=== PATIENT | female | born 1945 | race Caucasian/White ===

== ENCOUNTER 2017-01-12 11:40 | Day surgery (SDC) | payer MEDICARE ==
--- NOTE | 2017-01-12 08:50 | HP ---
DATE OF SURGERY: 01/12/2017 HISTORY OF PRESENT ILLNESS: The patient is a 71 year-old with no prior colonoscopy. No family history of colon cancer. No pain. No change in bowel movements. No bloody stools. She had just some hemorrhoid issues in the past. She had prolapse in the past. PAST MEDICAL HISTORY: Diabetes, panic disorder, hypertension. PAST SURGICAL HISTORY: Cataract surgery, four coronary heart stents in the past. MEDICATIONS: Tramadol, clonazepam, metoprolol, Breo Ellipta, aspirin, vitamin D3, polyethylene glycol. ALLERGIES: NKDA. FAMILY HISTORY: Diabetes, pancreatic cancer. Negative for colon cancer. SOCIAL HISTORY: One pack per day smoker, denies alcohol abuse. REVIEW OF SYSTEMS: Twelve systems reviewed per admission assessment. No chest pain or palpitations other systems negative or noncontributory as above and per preadmission questionnaire. PHYSICAL EXAMINATION: GENERAL: No acute distress. HEENT: Sclerae nonicteric. NECK: No JVD. CHEST: Equal excursion, nonlabored breathing. CVS: Regular rate and rhythm. ABDOMEN: Soft, nontender. No peritoneal signs. EXTREMITIES: No significant edema. NEURO: Alert, moving extremities symmetrically. No gross motor deficits noted. RECTAL: Deferred timed to endoscopy exam. IMPRESSION: Screening colonoscopy. I feel she is a candidate. Risks and benefits explained in detail but not limited to bleeding or infection, small risk of bowel injury or perforation possibly requiring open procedure, small risk of missed or nondiagnosis or incomplete exam possibly requiring barium enema, other studies or procedures, general risk of anesthesia or sedation, risk of bowel prep, postoperative risk of nausea or cramping but not limited to. With her hemorrhoid issue as well will consider possible hemorrhoid banding pending operative findings. She understands and agrees to the planned procedure and will proceed with colonoscopy with possible hemorrhoid banding as an outpatient under MAC anesthesia.
[~2017-01-12 11:40] MED LIST: ANUSOL-HC 2.5% CREAM 30 GM ONE; Lactated Ringers 1,000 ML IV ONE; Lactated Ringers 1,000 ML IV SCH
[2017-01-12] MEDS ORDERED: Versed 2 MG/2 ML Injection IV ONE (11:41)
[2017-01-12] MEDS ORDERED: DIPRIVAN 200 MG/20 ML IV ONE (11:41)
[2017-01-12] MEDS ORDERED: Lactated Ringers 1,000 ML IV ONE (12:41)
[2017-01-12 15:53] VITALS: O2SAT 16
[2017-01-12 16:00] VITALS: BP 132/90; PULSE 86
--- NOTE | 2017-01-13 09:34 | OP ---
SURGERY DATE/TIME: 01/12/2017 1331 PREOPERATIVE DIAGNOSIS: 1) Need for screening colonoscopy. 2) History of some internal and external hemorrhoid issues. The patient desires consideration of internal hemorrhoid banding. POSTOPERATIVE DIAGNOSES: 1) Grade 2/3 internal and external hemorrhoids. 2) Small raised lesion versus hyperplastic lesion descending and sigmoid colon. 3) Mild diverticulosis. 4) Somewhat poor prep limiting exam. 5) Poor overall sphincter tone. PROCEDURES: 1) Colonoscopy to cecum with hot biopsy removal of small vague raised lesions versus hyperplastic lesions descending colon and sigmoid colon. 2) Internal hemorrhoid banding x2 columns (left lateral and right posterior). SURGEON: MAC. ANESTHESIA: IV sedation IV Demerol and Versed. ESTIMATED BLOOD LOSS: Minimal. INDICATIONS: As noted above. Risks and benefits explained in detail but not limited to and consent obtained. DESCRIPTION OF PROCEDURE AND FINDINGS: The patient is taken to the operating room. MAC anesthesia induced. After official time out and no disagreement with planned procedure, digital rectal exam revealed overall poor sphincter tone. She had some grade 2/3 internal and external hemorrhoids, seemed to have more sphincter tone laxity issue as well. The scope was carefully passed up through the somewhat poorly prepped colon with liquidy semi-solid stool limiting the exam. This was suction irrigated as well as possible but did limit the exam. Slowly and carefully navigated across transverse colon, ascending colon to the right lower quadrant to cecum, appendiceal orifice and valve visualized. Again, prep overall somewhat poor with liquidy semi-solid stools limiting the exam for small lesions. On withdrawal of the scope there were no signs of any large polyps, masses or obstructing lesions. She did have a few diverticula. She did have some very small vague raised lesions versus hyperplastic lesions in the descending and sigmoid colon removed with hot biopsy forceps. Whether this was just hyperplastic mucosa versus early hyperplastic polyps or early true polyps they were removed with hot biopsy forceps. Otherwise she had the internal and external hemorrhoids in the rectum. There were no signs of any large masses or obstructing lesions. Again the prep did limit the exam. The scope was withdrawn at this point. Remained in lateral position. Lubricated hemorrhoid retractor inserted. Again as I mentioned her sphincter tone was lax but she did have some hemorrhoid issues therefore the left lateral using the suction aerospace engineer grasping the top of edge of the hemorrhoid. The suction aerospace engineer is easily applied. A good tuft of tissue noted. This was then again repeated in the right posterior fashion again with the top edge of the hemorrhoid tissue. Suction band was easily applied. The right anterior hemorrhoid complex did not seem to be prominent enough to warrant any banding. The patient tolerated the procedure well. There were no immediate complications. There was no family available to discuss the findings with out in the waiting area. If they return and have questions I could be paged. Otherwise I will see her back in the office next week, continue high fiber diet, Metamucil or FiberCon to titrate soft bulky bowel movements, sitz baths PRN. Again, she has an overall poor sphincter tone so banding to help the hemorrhoids but she could have some fermenting cellars supervisor generalized mucosal prolapse.
== END 2017-01-12 18:07 | disposition home or self-care (01) ==
LOC: SDC 11:40
PROVIDERS: ATTEND Surgery
PROC: 0DBM8ZX Excision of Descending Colon, Via Natural or Artificial Opening Endoscopic, Diagnostic (ICD-10-PCS; principal; 2017-01-12)
PROC: 0DBN8ZX Excision of Sigmoid Colon, Via Natural or Artificial Opening Endoscopic, Diagnostic (ICD-10-PCS; 2017-01-12)
PROC: 06LY4CC Occlusion of Hemorrhoidal Plexus with Extraluminal Device, Percutaneous Endoscopic Approach (ICD-10-PCS; 2017-01-12)
DX: Z12.11 Encounter for screening for malignant neoplasm of colon (principal); K64.4 Residual hemorrhoidal skin tags; K64.8 Other hemorrhoids; K63.9 Disease of intestine, unspecified; K57.90 Diverticulosis of intestine, part unspecified, without perforation or abscess without bleeding; E11.9 Type 2 diabetes mellitus without complications; I10 Essential (primary) hypertension; Z79.899 Other long term (current) drug therapy; Z72.0 Tobacco use
CPT/HCPCS: 00810; 99100; J2250; J2704; A9270-GY

== ENCOUNTER 2019-11-07 10:35 | Day surgery (SDC) | payer MEDICARE ==
--- NOTE | 2019-11-07 09:47 | HP ---
DATE OF SURGERY: 11/07/2019 HISTORY OF PRESENT ILLNESS: The patient is a 74 year old generalized myelodysplastic syndrome in need Port-A-Cath for prison IV treatments per Dr. Monique. I feel she is a candidate. PAST MEDICAL HISTORY: Heart disease. Diabetes. Arthritis. Myelodysplastic syndrome. Panic disorder. Hypertension. PAST SURGICAL HISTORY: Cataract surgery. Heart stents in the past. MEDICATIONS: Metoprolol, Lisinopril, pioglitazone, Colace, aspirin, multivitamin, Aleve. ALLERGIES: TAPE. FAMILY HISTORY: Cancer, diabetes, heart disease. Bipolar. SOCIAL HISTORY: Pack a day smoker, denies alcohol abuse. REVIEW OF SYSTEMS: Fourteen systems reviewed. Negative or noncontributory as above and per preadmission questionnaire. PHYSICAL EXAMINATION: GENERAL: No acute distress. HEENT: Sclerae nonicteric. NECK: No JVD. CHEST: Equal excursion, nonlabored breathing. CVS: Regular rate and rhythm. ABDOMEN: Soft. EXTREMITIES: No significant edema. NEURO: Alert, oriented, moving extremities symmetrically. No gross motor deficits noted. PSYCH: Appropriate mood and affect. IMPRESSION: Myelodysplastic syndrome in need of prison IV access for IV treatments. Risks and benefits explained in detail including but not limited to bleeding or infection, risk of thrombosis or pneumothorax, risk of arterial injury, remote risk of major venous tear, risk of port or catheter fracture or failure possible require removal and replacement, risk of port infection, possible risk of hematoma or seroma formation, risk of aches and pains, burning or numbness but not limited to, risk of anesthesia, deep venous thrombosis, pulmonary embolism, pneumonia but not limited to, will proceed with outpatient Port-A-Cath placement.
[~2019-11-07 10:35] MED LIST changes: -ANUSOL-HC 2.5% CREAM 30 GM ONE; +Ketamine HCl 50 MG/ML ONE; -Lactated Ringers 1,000 ML IV SCH; +Sensorcaine 0.25% 10 ML ONE; +XYLOCAINE 1% HCL 20 ML MDV ONE
[2019-11-07] MEDS ORDERED: CEFAZOLIN 2 GM-D5W BAG** 2 GM/50 ML ML IV ONE (10:48)
[2019-11-07] MEDS ORDERED: Lactated Ringers 1,000 ML IV ONE (10:48)
[2019-11-07] MEDS ORDERED: CEFAZOLIN 2 GM-D5W BAG** 2 GM/50 ML ML IV SCH (11:00)
[2019-11-07] MEDS ORDERED: Lactated Ringers 1,000 ML IV SCH (11:00)
[2019-11-07] MEDS ORDERED: DIPRIVAN 200 MG/20 ML IV ONE (12:40)
[2019-11-07] MEDS ORDERED: SUBLIMAZE 100 MCG/2 ML ONE (12:42)
[2019-11-07] MEDS ORDERED: Versed 2 MG/2 ML Injection ONE (12:42)
--- NOTE | 2019-11-07 13:51 | XRAY ---
Indication: Port placement. Intraoperative fluoroscopy was provided for 2 seconds. Single digital spot image submitted for interpretation demonstrates left Port-A-Cath with tip projecting over the SVC. Correlate with intraoperative findings/report.
[2019-11-07] MEDS ORDERED: Thrombin-JMI 5000 UNITS TP ONE (14:07)
[2019-11-07 15:08] VITALS: BP 134/55; PULSE 76; O2SAT 96
--- NOTE | 2019-11-08 08:49 | OP ---
SURGERY DATE/TIME: 11/07/2019 1258 PREOPERATIVE DIAGNOSIS: Orthostatic syndrome, need for long-term IV access for IV treatments. POSTOPERATIVE DIAGNOSIS: Orthostatic syndrome, need for long-term IV access for IV treatments. PROCEDURE: Tunnel Port-A-Cath placement with C-arm fluoroscopy of left subclavian vein. SURGEON: Dr. Dustin Wilder. SORTING GRAPPLE OPERATOR: Gloria Jauregui, Medical Student III. ANESTHESIA: MAC. ESTIMATED BLOOD LOSS: Minimal. INDICATIONS: As noted above. Risks and benefits explained in detail and not limited to and consent obtained. DESCRIPTION OF PROCEDURE AND FINDINGS: The patient is taken to the operating room. MAC anesthesia introduced. In Trendelenburg position, neck and chest prepped and draped in usual sterile fashion. After official time out and no disagreement with planned procedure, 1% Lidocaine local was infiltrated. 18 gauge cannulation needle inserted on first pass. Good dark nonpulsatile venous return. Guide wire passed without difficulty. Anesthetized tunnel track and port pocket. Inferior subcu port pocket created with aid of cautery. It should be noted she had quite the arterial pumper in the port pocket. Given her myelodysplastic syndrome, it was felt she may have some thyroid dysfunction. Slowly and carefully this was able to be controlled with some 3-0 Vicryl suture ligature on either end. She had a little bit of raw ooze. A small amount of Thrombin had been left in position. Appeared to have good hemostasis at this point. Copious amount of irrigation irrigating clear. Did not appear to have any active bleeding at this point. Again, the pulsatile vessel was then ligated with 3-0 Vicryl suture ligature. Port secured to the chest wall with Prolene suture x2. Catheter tunneled down from cannulation stab wound down port pocket area. The dilator and break away sheath easily placed over the guide wire. Catheter fed down the break away sheath. The tip was in the distal superior vena cava on C-arm fluoroscopy at the top of the right atrial area. Catheter is cut to appropriate length snapped on the port with the hub. The port aspirated dark, nonpulsatile venous return with ease and flushed with injectable heparinized saline provided by the staff without difficulty. Tip was in good location distal superior vena cava. Lung hernández noted to be up bilaterally. It was felt that no further x-rays were necessary at this point. Good hemostasis is noted. Again, a small amount of Thrombin had been left. Appeared to have good hemostasis. Subcu closed with 3-0 Vicryl. Skin closed with 4-0 Vicryl. Cannulation stab wound closed with 4-0 Vicryl. Steri-Strips and sterile dressing applied. The patient tolerated the procedure well. There were no immediate complications. Findings discussed with the family over the phone.
== END 2019-11-07 14:55 | disposition home or self-care (01) ==
LOC: SDC 10:35
PROVIDERS: ATTEND Surgery
DX: Z45.2 Encounter for adjustment and management of vascular access device (principal); I49.8 Other specified cardiac arrhythmias; E11.9 Type 2 diabetes mellitus without complications; D46.9 Myelodysplastic syndrome, unspecified; I10 Essential (primary) hypertension; Z86.79 Personal history of other diseases of the circulatory system
CPT/HCPCS: 36571; 77001; 82962; C1788; 99100; J0690; J1642; J2250; J2704; J3010

== ENCOUNTER 2025-02-01 12:48 | Observation (INO) | payer MEDICARE ==
--- NOTE | 2025-02-01 13:11 | ERPHSYRPT ---
- History of Present Illness Time Seen by Provider: 02/01/25 13:11 Source: patient Exam Limitations: no limitations Physician History: The patient presents complaining of weakness, which resulted in two falls last week. The patient states their legs "went out," causing one fall backward and one forward. The falls resulted in right knee pain, which is tender to palpation, and lumbar back pain. The patient denies hitting their head and denies any associated numbness or tingling in the lower extremities. The patient believes the weakness is from dehydration due to poor oral intake. Allergies/Adverse Reactions: adhesive Allergy (Verified 02/01/25 12:49) Home Medications: Metoprolol Tartrate 25 mg PO BID 01/12/17 [History] Aspirin 81 mg PO DAILY 11/02/19 [History] Naproxen Sodium 220 mg [Aleve 220 MG] 220 mg PO DAILY PRN PRN 11/02/19 [History] Pioglitazone 30 mg [Actos 30 MG] 30 mg PO DAILY 11/02/19 [History] clonazePAM [Klonopin] 1 mg PO BID 11/02/19 [History] Atorvastatin Calcium [Lipitor] 10 mg PO HS 11/07/19 [History] Hx Tetanus, Diphtheria Vaccination/Date Given: (na) Hx Influenza Vaccination/Date Given: No Hx Pneumococcal Vaccination/Date Given: No - Review of Systems All Other Systems: Reviewed and Negative - Past Medical History Pertinent Past Medical History: Yes Neurological History: No Pertinent History ENT History: Cataracts Cardiac History: Coronary Artery Disease, High Cholesterol, Hypertension Respiratory History: No Pertinent History Endocrine Medical History: Diabetes Type II Musculoskeletal History: Arthritis, Osteoarthritis GI Medical History: No Pertinent History History: No Pertinent History Psycho-Social History: Anxiety, Panic Disorder, Other Female Reproductive Disorders: No Pertinent History Other Medical History: panic disorder,agoraphobia, neuropathy,MDS, post retinal membrane L eye - Past Surgical History Past Surgical History: Yes Neuro Surgical History: Neurological Surgery Cardiac: Cardiac Stent Respiratory: No Pertinent History Gastrointestinal: No Pertinent History Genitourinary: No Pertinent History Musculoskeletal: No Pertinent History Female Surgical History: No Pertinent History Other Surgical History: cataract WILLY, back surgeryX3 - Social History Drug Use: none - Nursing Vital Signs Nursing Vital Signs: Initial Vital Signs Temperature 97.1 F 02/01/25 12:49 Pulse Rate 68 02/01/25 12:49 Respiratory Rate 12 02/01/25 12:49 Blood Pressure 147/60 02/01/25 12:49 O2 Sat by Pulse Oximetry 97 02/01/25 12:49 Pain Scale Pain Intensity 3 - [place] Coma Score Best Eye Response ([place]): (4) open spontaneously Best Verbal Response ([place]): (5) oriented Best Motor Response ([place]): (6) obeys commands [place] Total: 15 - Physical Exam General Appearance: no apparent distress Head Injury: no evidence of injury Respiratory/Chest Exam: normal breath sounds, No respiratory distress Cardiovascular Exam: normal heart sounds, regular rate/rhythm Gastrointestinal Exam: soft, No tenderness Back Exam: vertebral tenderness, muscle spasm Extremity Exam: limited range of motion (r knee), pain with movement (r knee), tenderness (r knee), other (unable to WB) Neurologic Exam: alert, oriented x 3, cooperative SpO2 Interpretation: normal SpO2: 97 O2 Delivery: Room Air - Course Nursing assessment & vital signs reviewed: Yes Ordered Tests: Active Orders 24 hr Category Date Time Status Call Admit Doctor for Orders ON ADMISSION Care 02/01/25 16:06 Active Code Status Order ROUTINE Care 02/01/25 16:06 Active Fall Protocol Q1H Care 02/01/25 16:06 Active IV Insertion STAT Care 02/01/25 13:[address] in Observation ROUTINE Care 02/01/25 16:06 Active House Regular Diet Diet 02/01/25 Dinner Active KNEE (3 VIEWS) Stat Exams 02/01/25 13:23 Completed LUMBAR LIMITED (2 OR 3 VIEWS) Stat Exams 02/01/25 13:23 Completed CBC Stat Lab 02/01/25 13:30 Completed CMP Stat Lab 02/01/25 13:24 Completed CULTURE,URINE Stat Lab 02/01/25 13:53 Received UA W/RFX UR CULTURE Stat Lab 02/01/25 13:53 Completed Transfer Order Routine Transfer 02/01/25 Completed Medication Summary Generic Name Dose Route Start Last Admin Trade Name Freq PRN Reason Stop Dose Admin Acetaminophen 500 mg 02/01/25 18:17 02/01/25 18:29 Acetaminophen 500 Mg Tablet PO 02/01/25 18:18 500 mg STAT STA Administration Aspirin 81 mg 02/02/25 10:00 Aspirin 81 Mg Tab.Chew PO 01/24/26 09:59 DAILY OSITO Clonazepam 1 mg 02/01/25 22:00 02/01/25 22:47 Clonazepam 2 Mg Tablet PO 03/03/25 21:59 1 mg BID OSITO Administration Metoprolol Tartrate 25 mg 02/01/25 22:00 02/01/25 22:47 Metoprolol Tartrate 25 Mg Tab PO 03/03/25 21:59 25 mg BID OSITO Administration Nitrofurantoin Macrocrystals 100 mg 02/02/25 08:00 Nitrofurantoin Macro 100 Mg Capsule PO 03/04/25 07:59 BIDWM OSITO Non-Formulary Medication 30 mg 02/02/25 10:00 Pioglitazone 30 Mg [Actos 30 Mg] PO 03/04/25 09:59 DAILY OSITO Non-Formulary Medication 220 mg 02/01/25 21:04 Naproxen Sodium 220 Mg [Aleve 220 Mg] PO DAILY PRN PRN PAIN Simvastatin 10 mg 02/01/25 22:00 02/01/25 22:47 Simvastatin 10 Mg Tablet PO 03/03/25 21:59 10 mg HS OSITO Administration Discontinued Medications Generic Name Dose Route Start Last Admin Trade Name Freq PRN Reason Stop Dose Admin Acetaminophen 975 mg 02/01/25 13:22 02/01/25 13:58 Acetaminophen 325 Mg Tablet PO 02/01/25 13:23 975 mg STAT ONE Administration Acetaminophen Confirm 02/01/25 13:57 Acetaminophen 325 Mg Tablet Administered 02/01/25 13:58 Dose 975 mg .ROUTE .STK-MED ONE Sodium Chloride 1,000 mls @ 999 mls/hr 02/01/25 13:22 02/01/25 15:03 Sodium Chloride 0.9% 1000 Ml IV 02/01/25 14:22 Infused .Q1H1M STA Infusion Sodium Chloride Confirm 02/01/25 13:58 Sodium Chloride 0.9% 1000 Ml Administered 02/01/25 13:59 Dose 1,000 mls @ ud .ROUTE .STK-MED ONE Nitrofurantoin Macrocrystals 100 mg 02/01/25 15:04 02/01/25 15:08 Nitrofurantoin Macro 100 Mg Capsule PO 02/01/25 15:05 100 mg STAT ONE Administration Nitrofurantoin Macrocrystals Confirm 02/01/25 15:07 Nitrofurantoin Macro 100 Mg Capsule Administered 02/01/25 15:08 Dose 100 mg .ROUTE .Liquid X ONE Non-Formulary Medication 10 mg 02/01/25 22:00 02/01/25 22:45 Atorvastatin Calcium [Lipitor] PO 03/03/25 21:59 Not Given HS OSITO Simvastatin Confirm 02/01/25 22:41 Simvastatin 10 Mg Tablet Administered 02/01/25 22:42 Dose 10 mg .ROUTE .[employer]-MED ONE Lab/Rad Data: Laboratory Result Diagrams 02/01/25 13:30 02/01/25 13:24 Laboratory Results 02/01/25 02/01/25 02/01/25 Range/Units 13:53 13:30 13:24 WBC 10.6 H (3.98-10.04) x10^3/uL RBC 2.99 L (3.93-5.22) x10^6/uL Hgb 10.1 L (11.2-15.7) g/dL Hct 33.4 L (34.1-44.9) % MCV 111.7 H (79.4-94.8) fL MCH 33.8 H (25.6-32.2) pg MCHC 30.2 L (32.2-35.5) g/dL RDW 15.3 H (11.7-14.4) % Plt Count 331 (182-369) x10^3/uL MPV 10.6 (9.4-12.3) fL Sodium 140 (135-145) mmol/L Potassium 3.7 (3.5-5.1) mmol/L Chloride 108 H (98-107) mmol/L Carbon Dioxide 22 (22-30) mmol/L Anion Gap 12.9 (5-15) MEQ/L BUN 22 H (7-17) mg/dL Creatinine 0.88 (0.52-1.04) mg/dL Estimated GFR 66.4 ML/MIN Glucose 150 H (74-106) mg/dL Calcium 9.2 (8.4-10.2) mg/dL Total Bilirubin 0.50 (0.2-1.3) mg/dL AST 27 (14-36) U/L ALT 11 (0-35) U/L Alkaline Phosphatase 73 (38-126) U/L Serum Total Protein 6.5 (6.3-8.2) g/dL Albumin 3.5 (3.5-5.0) g/dL Urine Color Yellow (Yellow) Urine Appearance Clear (Clear) Urine pH 5.0 (4.6-8.0) Ur Specific [place] 1.025 (1.005-1.030) Urine Protein 30 (Negative) Urine Glucose (UA) Negative (Negative) mg/dL Urine Ketones 15 A (Negative) Urine Blood Trace (Negative) Urine Nitrite Negative (Negative) Urine Bilirubin Negative (Negative) Urine Urobilinogen 0.2 (0.2) mg/dL Ur Leukocyte Esterase Small A (Negative) U Hyaline Cast (Auto) 11-20 (0-2) /LPF Urine Microscopic RBC 11-20 A (0-5) /HPF Urine Microscopic WBC 51-100 A (0-5) /HPF Ur Epithelial Cells Rare (None Seen) /HPF Amorphous Crystals Moderate A (None Seen) /HPF Urine Bacteria Few A (None Seen) /HPF Urine Culture Reflexed YES (NO) - Progress Progress: unchanged Progress Note: Differential Diagnosis: -Anemia (possible due to history of myelodysplastic syndrome and pale appearance) -Dehydration (possible due to patient's report of poor oral intake and associated weakness) -Orthostatic Hypotension (possible due to falls and potential dehydration) -Musculoskeletal Injury (possible due to falls resulting in right knee and lumbar back pain) -Myelodysplastic Syndrome exacerbation (possible due to known history and presenting with weakness) -Electrolyte abnormality (possible due to poor oral intake) Due to the chief complaint, the following diagnoses were also considered but the signs/symptoms, physical exam, and data points are not consistent with any of the following: Acute Coronary Syndrome, Pulmonary Embolism, Stroke, Sepsis, Arrhythmia, Intracranial Hemorrhage, Spinal Cord Compression, Aortic Dissection, GI Bleed, Seizure, Hypoglycemia. Rationale for Diagnosis and Decision Making: The patient, with a known history of anemia and myelodysplastic syndrome, presents with weakness and falls. The primary concerns are worsening anemia or dehydration leading to orthostatic changes. The decision was made to evaluate with laboratory studies to assess hemoglobin and electrolytes, and to obtain radiographs of the knee and lumbar spine to rule out acute fracture from the falls. IV fluids were initiated for presumed dehydration. XR neg for acute injury, UA shows UTI tx with Macrobid. Was attempting to dc patient, but she states she can't stand up and ambulate. Hospitalist accepts at 1547 for admission. Counseled pt/family regarding: lab results, diagnosis, need for follow-up, rad results Medical Desision Making - Discussion of managment Care discussed with:: hospitalist Reviewed:: Test results Agreed on:: Treatment plan Will see patient: in hospital - Diagnostic Testing Diagnostic test were ordered, analyzed, and reviewed by me: Yes Radiological Interpretation: Interpreted by me, Reviewed by me, Teleradiologist Report - Risk of complications The pt has a mod risk of morbidity or mortality based on: Need for prescription drug management The pt has a high risk of morbidity or mortality based on: Decision regarding hospitilization or escalation of hosp level of care - Departure Departure Disposition: Observation Clinical Impression: Fall, Weakness, UTI (urinary tract infection), Right knee pain, Osteoarthritis of right knee, Lumbago, Difficulty in walking, Physical deconditioning Condition: Stable Critical Care Time: No
[2025-02-01 13:49] LABS: Hematocrit 33.4 % (34.1-44.9); Hemoglobin 10.1 g/dL (11.2-15.7); Mean Corpuscular Hemoglobin 33.8 pg (25.6-32.2); Mean Corpuscular Hgb Concent. 30.2 g/dL (32.2-35.5); Platelet Count 331 x10^3/uL (182-369); Red Blood Count 2.99 x10^6/uL (3.93-5.22); White Blood Count 10.6 x10^3/uL (3.98-10.04)
[2025-02-01] MEDS ORDERED: TYLENOL 325 MG ONE (13:57)
[2025-02-01] MEDS: TYLENOL 325 MG PO ONE (13:58)
[2025-02-01 14:03] LABS: Calcium 9.2 mg/dL (8.4-10.2); Carbon Dioxide 22.0 mmol/L (22-30); Creatinine 1 0.88 mg/dL (0.52-1.04); EST GLOMERULAR FILTRATION RATE 66.4 ML/MIN; Glucose 150.0 mg/dL (74-106); Potassium 3.7 mmol/L (3.5-5.1); SGOT/AST 27.0 U/L (14-36); SGPT/ALT 11.0 U/L (0-35); Total Protein 6.5 g/dL (6.3-8.2)
--- NOTE | 2025-02-01 14:44 | XRAY ---
Indication: Pain following fall. Comparison: None 3 view right knee demonstrates osteopenia, mild/moderate tricompartmental degenerative changes greatest patellofemoral compartment with chunky heterotopic ossification, and moderate scattered vascular calcifications. No acute bony, articular, or soft tissue abnormalities.
[2025-02-01 14:45] LABS: Glucose, Urine Negative (Negative); Protein,Urine Dip 30 (Negative)
[2025-02-01 14:46] LABS: WBC 51-100 /HPF (0-5)
--- NOTE | 2025-02-01 14:46 | XRAY ---
Indication: Pain following fall. Comparison: None 3 view lumbar spine demonstrates 5 lumbar segments with osteopenia, mild levoscoliosis centered at L3, mild/moderate multilevel thoracolumbar degenerative spondylosis, bilateral L5 laminectomy, and extensive scattered vascular calcifications. No acute bony, articular, or soft tissue abnormalities.
[2025-02-01 14:47] LABS: Amourphous Crystal Moderate /HPF (None Seen)
[2025-02-01] MEDS ORDERED: Macrobid 100MG Capsule ONE (15:07)
[2025-02-01] MEDS: Macrobid 100MG Capsule PO ONE (15:08)
[2025-02-01] MEDS: TYLENOL EXTRA STRENGTH 500 MG PO STA (18:29)
--- NOTE | 2025-02-01 20:56 | PCM.HP ---
History of Present Illness - Chief Complaint Chief Complaint: UTI History of Present Illness: is a 80 year old female with history of CAD s/p stents, HTN, hyperlipidemia, DM who presented with weakness after a fall. Patient says she was going from the bathroom to her room with a walker when she fell and could not get up. Called her daughter with her cell phone who called EMS and brought her to the hospital. Patient denies loss of consciousness or hitting her head. Says she hit her knees when she fell and her right knee was hurting more than her left knee. She also complained of right groin pain. In the ER her vitals were mostly within normal limits and labs were stable from baseline. UA was suggestive of infection though she reported some hesitancy but no dysuria. Lumbar and right knee x rays did not show any acute fractures. She was unable to ambulate and care for herself and was admitted for weakness after fall and UTI. - Review of Systems Constitutional: Weakness Eyes: No Symptoms Ears, Nose, & Throat: No Symptoms Respiratory: No Cough, No Short Of Breath Cardiac: No Chest Pain, No Edema, No Syncope Abdominal/Gastrointestinal: No Abdominal Pain, No Nausea, No Vomiting, No Diarrhea Genitourinary Symptoms: No Dysuria Musculoskeletal: Fall, Joint Pain (right knee and right groin pain) Skin: No Rash Neurological: No Dizziness, No Focal Weakness, No Sensory Changes Psychological: No Symptoms Endocrine: No Symptoms Hematologic/Lymphatic: No Symptoms Immunological/Allergic: No Symptoms Medications & Allergies Home Medications: Home Medication List Metoprolol Tartrate 25 mg PO BID 01/12/17 [History Confirmed 02/01/25] Aspirin 81 mg PO DAILY 11/02/19 [History Confirmed 02/01/25] Naproxen Sodium 220 mg [Aleve 220 MG] 220 mg PO DAILY PRN PRN 11/02/19 [History Confirmed 02/01/25] Pioglitazone 30 mg [Actos 30 MG] 30 mg PO DAILY 11/02/19 [History Confirmed 02/01/25] clonazePAM [Klonopin] 1 mg PO BID 11/02/19 [History Confirmed 02/01/25] Atorvastatin Calcium [Lipitor] 10 mg PO HS 11/07/19 [History Confirmed 02/01/25] Nitrofurantoin Macro 100 mg [Macrobid 100MG Capsule] 100 mg PO BID 5 Days #9 cap 02/01/25 [Rx] Allergies/Adverse Reactions: Allergies Allergy/AdvReac Type Severity Reaction Status Date / Time adhesive Allergy Verified 02/01/25 12:49 - Past Medical History Past Medical History: Yes Neurological History: No Pertinent History ENT History: Cataracts Cardiac History: Coronary Artery Disease, High Cholesterol Respiratory History: No Pertinent History Endocrine Medical History: Diabetes Type II Musculoskelatal History: Arthritis, Osteoarthritis GI Medical History: No Pertinent History History: No Pertinent History Pyscho-Social History: Anxiety, Panic Disorder, Other Reproductive Disorders: No Pertinent History Comment: panic disorder,agoraphobia, neuropathy,MDS, post retinal membrane L eye - Past Surgical History Past Surgical History: Yes Neuro Surgical History: Neurological Surgery Cardiac History: Cardiac Stent Respiratory Surgery: No Pertinent History GI Surgical History: No Pertinent History Genitourinary Surgical Hx: No Pertinent History Musculskeletal Surgical Hx: No Pertinent History Female Surgical History: No Pertinent History Other Surgical History: cataract WILLY, back surgeryX3 - Social History Smoking Status: Current some day smoker How long have you smoked: 30 Exposure to second hand smoke: Yes Alcohol: None Drug Use: none - Social Determinants of Health Will the patient participate in the screening: Yes Do you worry about a steady place to live?: No Do you have any problems with any of the following?: No known problems In the past 12 months,have you had to go without utilities?: No Have you or anyone in your house had to go without enough: No Transportation Issues: No Has anyone in your support network made you feel unsafe?: No Does the patient want assistance with any of the above?: No - Physical Exam Vital Signs: Vital Signs - 24 hr Temp Pulse Resp BP BP Pulse Ox 02/01/25 19:18 97.4 F 64 18 184/75 96 02/01/25 16:11 97.1 F 60 16 148/65 97 02/01/25 16:06 97.1 F 60 16 148/65 94 L 02/01/25 15:31 97 02/01/25 15:31 148/60 02/01/25 15:00 137/67 96 02/01/25 14:32 60 12 128/44 97 02/01/25 14:17 60 15 148/51 97 02/01/25 14:16 98 02/01/25 14:15 83 L 02/01/25 13:31 74 15 131/80 82 L 02/01/25 12:51 64 15 147/60 94 L 02/01/25 12:49 97.1 F 68 12 60 97 General Appearance: no apparent distress Neurologic Exam: alert, oriented x 3, cooperative, normal mood/affect, sensation nml Eye Exam: PERRL/EOMI, eyes nml inspection Ears, Nose, Throat Exam: normal ENT inspection, TMs normal, pharynx normal, moist mucous membranes Neck Exam: normal inspection, non-tender, supple, full range of motion Respiratory Exam: normal breath sounds, lungs clear, No respiratory distress Cardiovascular Exam: regular rate/rhythm, normal heart sounds, normal peripheral pulses Gastrointestinal/Abdomen Exam: soft, normal bowel sounds, No tenderness, No mass Pelvic Exam: not done Rectal Exam: deferred Back Exam: normal inspection, normal range of motion, No CVA tenderness, No vertebral tenderness Extremity Exam: limited range of motion (bilateral lower extremity weakness, R>L. Unable to raise either leg however worse on right), tenderness (bilateral knees) Results - Labs Lab/Micro Results: Lab Results-Last 24 Hours 02/01/25 02/01/25 02/01/25 Range/Units 13:24 13:30 13:53 WBC 10.6 H (3.98-10.04) x10^3/uL RBC 2.99 L (3.93-5.22) x10^6/uL Hgb 10.1 L (11.2-15.7) g/dL Hct 33.4 L (34.1-44.9) % MCV 111.7 H (79.4-94.8) fL MCH 33.8 H (25.6-32.2) pg MCHC 30.2 L (32.2-35.5) g/dL RDW 15.3 H (11.7-14.4) % Plt Count 331 (182-369) x10^3/uL MPV 10.6 (9.4-12.3) fL Sodium 140 (135-145) mmol/L Potassium 3.7 (3.5-5.1) mmol/L Chloride 108 H (98-107) mmol/L Carbon Dioxide 22 (22-30) mmol/L Anion Gap 12.9 (5-15) MEQ/L BUN 22 H (7-17) mg/dL Creatinine 0.88 (0.52-1.04) mg/dL Estimated GFR 66.4 ML/MIN Glucose 150 H (74-106) mg/dL POC Glucometer (74 to 106) mg/dL Calcium 9.2 (8.4-10.2) mg/dL Total Bilirubin 0.50 (0.2-1.3) mg/dL AST 27 (14-36) U/L ALT 11 (0-35) U/L Alkaline Phosphatase 73 (38-126) U/L Serum Total Protein 6.5 (6.3-8.2) g/dL Albumin 3.5 (3.5-5.0) g/dL Urine Color Yellow (Yellow) Urine Appearance Clear (Clear) Urine pH 5.0 (4.6-8.0) Ur Specific [place] 1.025 (1.005-1.030) Urine Protein 30 (Negative) Urine Glucose (UA) Negative (Negative) mg/dL Urine Ketones 15 A (Negative) Urine Blood Trace (Negative) Urine Nitrite Negative (Negative) Urine Bilirubin Negative (Negative) Urine Urobilinogen 0.2 (0.2) mg/dL Ur Leukocyte Esterase Small A (Negative) U Hyaline Cast (Auto) 11-20 (0-2) /LPF Urine Microscopic RBC 11-20 A (0-5) /HPF Urine Microscopic WBC 51-100 A (0-5) /HPF Ur Epithelial Cells Rare (None Seen) /HPF Amorphous Crystals Moderate A (None Seen) /HPF Urine Bacteria Few A (None Seen) /HPF Urine Culture Reflexed YES (NO) 02/01/25 Range/Units 20:29 WBC (3.98-10.04) x10^3/uL RBC (3.93-5.22) x10^6/uL Hgb (11.2-15.7) g/dL Hct (34.1-44.9) % MCV (79.4-94.8) fL MCH (25.6-32.2) pg MCHC (32.2-35.5) g/dL RDW (11.7-14.4) % Plt Count (182-369) x10^3/uL MPV (9.4-12.3) fL Sodium (135-145) mmol/L Potassium (3.5-5.1) mmol/L Chloride (98-107) mmol/L Carbon Dioxide (22-30) mmol/L Anion Gap (5-15) MEQ/L BUN (7-17) mg/dL Creatinine (0.52-1.04) mg/dL Estimated GFR ML/MIN Glucose (74-106) mg/dL POC Glucometer 71 L (74 to 106) mg/dL Calcium (8.4-10.2) mg/dL Total Bilirubin (0.2-1.3) mg/dL AST (14-36) U/L ALT (0-35) U/L Alkaline Phosphatase (38-126) U/L Serum Total Protein (6.3-8.2) g/dL Albumin (3.5-5.0) g/dL Urine Color (Yellow) Urine Appearance (Clear) Urine pH (4.6-8.0) Ur Specific [place] (1.005-1.030) Urine Protein (Negative) Urine Glucose (UA) (Negative) mg/dL Urine Ketones (Negative) Urine Blood (Negative) Urine Nitrite (Negative) Urine Bilirubin (Negative) Urine Urobilinogen (0.2) mg/dL Ur Leukocyte Esterase (Negative) U Hyaline Cast (Auto) (0-2) /LPF Urine Microscopic RBC (0-5) /HPF Urine Microscopic WBC (0-5) /HPF Ur Epithelial Cells (None Seen) /HPF Amorphous Crystals (None Seen) /HPF Urine Bacteria (None Seen) /HPF Urine Culture Reflexed (NO) - Radiology Impressions Radiology Exams & Impressions: Radiology Procedures Category Date Time Status HIP UNI (2V) INCL PEL IF DONE Urgent Exams 02/01/25 18:15 Taken KNEE (3 VIEWS) Stat Exams 02/01/25 13:23 Completed LUMBAR LIMITED (2 OR 3 VIEWS) Stat Exams 02/01/25 13:23 Completed Assessment/Plan (1) Fall Current Visit: Yes Status: Acute Assessment & Plan: -fall with weakness and ambulatory dysfunction. Patient has had a couple of falls in the past couple of weeks. Will need PT/OT evaluation, possible rehab placement. -Check right hip x ray to rule out fracture given right groin and right knee pain Code(s): W19.XXXA - UNSPECIFIED FALL, INITIAL ENCOUNTER (2) UTI (urinary tract infection) Current Visit: Yes Status: Acute Assessment & Plan: -macrobid 100 mg BID pending urine cultures Code(s): N39.0 - URINARY TRACT INFECTION, SITE NOT SPECIFIED (3) Hypertension Current Visit: Yes Status: Chronic Assessment & Plan: -continue metoprolol Code(s): I10 - ESSENTIAL (PRIMARY) HYPERTENSION (4) Hyperlipidemia Current Visit: Yes Status: Chronic Assessment & Plan: -continue statin Code(s): E78.5 - HYPERLIPIDEMIA, UNSPECIFIED (5) DM2 (diabetes mellitus, type 2) Current Visit: Yes Status: Acute Assessment & Plan: -continue pioglitazone (6) CAD (coronary artery disease) Current Visit: Yes Status: Acute Assessment & Plan: -continue aspirin, statin metoprolol Code(s): I25.10 - ATHSCL HEART DISEASE OF [place] CORONARY ARTERY W/O ANG PCTRS (7) Agoraphobia Current Visit: Yes Status: Acute Assessment & Plan: -continue home klonopin Code(s): F40.00 - AGORAPHOBIA, UNSPECIFIED Telemedicine Encounter - Telemedicine Encounter Telemedicine Encounter: "The entirety of this encounter was performed via Telemedicine" This visit was performed using real-time audio and video connection between my location and thepatients locationwith the assistance of a surrogateat the patients location. Written or verbal consent was obtained from the p atient/guardian to perform this visit [facility]. Any patient questions regarding the telemedicine interaction were answered.
[2025-02-01] MEDS ORDERED: Zocor 10MG ONE (22:41)
[2025-02-01] MEDS: NON-FORMULARY ITEM (Atorvastatin Calcium [Lipitor] 10 MG Tablet) PO SCH (22:45)
[2025-02-01] MEDS: Zocor 10MG PO SCH (22:47)
[2025-02-01] MEDS: Lopressor 25MG Tab PO SCH (22:47)
[2025-02-01] MEDS: KLONOPIN PO SCH (22:47)
[2025-02-02] MEDS ORDERED: Naprosyn 500 MG ONE (04:32)
[2025-02-02 06:05] LABS: Hematocrit 33.4 % (34.1-44.9); Hemoglobin 10.2 g/dL (11.2-15.7); Mean Corpuscular Hemoglobin 33.9 pg (25.6-32.2); Mean Corpuscular Hgb Concent. 30.5 g/dL (32.2-35.5); Platelet Count 338 x10^3/uL (182-369); Red Blood Count 3.01 x10^6/uL (3.93-5.22); White Blood Count 7.9 x10^3/uL (3.98-10.04)
[2025-02-02 06:13] LABS: Calcium 9.1 mg/dL (8.4-10.2); Carbon Dioxide 23.0 mmol/L (22-30); Creatinine 1 0.73 mg/dL (0.52-1.04); EST GLOMERULAR FILTRATION RATE 83.1 ML/MIN; Glucose 85.0 mg/dL (74-106); Potassium 3.8 mmol/L (3.5-5.1); SGOT/AST 28.0 U/L (14-36); SGPT/ALT 10.0 U/L (0-35); Total Protein 6.5 g/dL (6.3-8.2)
--- NOTE | 2025-02-02 07:28 | XRAY ---
Indication: Pain following fall. Comparison: None 3 projections right hip demonstrates osteopenia, mild degenerative arthropathy, mild lower lumbar degenerative spondylosis, and moderate scattered vascular calcifications. No acute bony, articular, or soft tissue abnormalities.
--- NOTE | 2025-02-02 07:39 | PCM.NOTE ---
Date and Time: 02/02/25 0706 Subjective Assessment: is a 80 year old female with history of CAD s/p stents, HTN, hyperlipidemia, DM who presented with weakness after a fall. Patient says she was going from the bathroom to her room with a walker when she fell and could not get up. Called her daughter with her cell phone who called EMS and brought h er to the hospital. Patient denies loss of consciousness or hitting her head. Says she hit her knees when she fell and her right knee was hurting more than her left knee. She also complained of right groin pain. In the ER her vitals were mostly within normal limits and labs were stable from baseline. UA was suggestive of infection though she reported some hesitancy but no dysuria. Lumbar and right knee x rays did not show any acute fractures. She was unable to ambulate and care for herself and was admitted for weakness after fall and UTI. 02/02: continues to feel weak in her legs, along with pain. Unable to stand up. Will obtain lumbar CT to rule out occult compression fracture or disc herniation. - Review of Systems Constitutional: Weakness, No Fever, No Chills Eyes: No Symptoms Ears, Nose, & Throat: No Symptoms Respiratory: No Cough, No Short Of Breath Cardiac: No Chest Pain, No Edema, No Syncope Abdominal/Gastrointestinal: No Abdominal Pain, No Nausea, No Vomiting, No Diarrhea Genitourinary Symptoms: No Dysuria Musculoskeletal: Back Pain, Joint Pain (bilateral knees) Skin: No Rash Neurological: Other (bilateral lower extremity weakness), No Dizziness, No Focal Weakness, No Sensory Changes Psychological: No Symptoms Endocrine: No Symptoms Hematologic/Lymphatic: No Symptoms Immunological/Allergic: No Symptoms Objective Exam General Appearance: no apparent distress Neurologic Exam: alert, oriented x 3, cooperative, normal mood/affect, nml cerebellar function, sensation nml, motor deficits (bilateral lower extremity weakness (3/5)) Skin Exam: normal color, warm, dry Eye Exam: PERRL, EOMI, eyes nml inspection Ears, Nose, Throat Exam: normal ENT inspection, pharynx normal, moist mucous membranes Neck Exam: normal inspection, non-tender, supple, full range of motion Respiratory Exam: normal breath sounds, lungs clear, No respiratory distress Cardiovascular Exam: regular rate/rhythm, normal heart sounds Gastrointestinal/Abdomen Exam: soft, No tenderness, No mass Extremity Exam: normal inspection, No normal range of motion (unable to lift legs against gravity) Back Exam: CVA tenderness, vertebral tenderness Pelvic Exam: deferred Rectal Exam: deferred Objective Data Vital Signs: Vital Signs - 24 hr Temp Pulse Resp BP BP Pulse Ox 02/02/25 07:29 97.1 F 57 L 16 186/75 97 02/02/25 04:00 96.8 F 63 18 190/78 95 02/01/25 23:21 97 02/01/25 23:13 96.9 F 63 18 170/74 96 02/01/25 19:18 97.4 F 64 18 184/75 96 02/01/25 16:11 97.1 F 60 16 148/65 97 02/01/25 16:06 97.1 F 60 16 148/65 94 L 02/01/25 15:31 148/60 02/01/25 15:00 137/67 96 02/01/25 14:32 60 12 128/44 97 02/01/25 14:17 60 15 148/51 97 02/01/25 14:16 98 02/01/25 14:15 83 L 02/01/25 13:31 74 15 131/80 82 L 02/01/25 12:51 64 15 147/60 94 L 02/01/25 12:49 97.1 F 68 12 147/60 97 Pain Assessment - Last Documented Pain Intensity 4 Pain Scale Used FLACC Intake and Output: Intake & Output 01/30/25 01/31/25 02/01/25 02/02/25 11:59 11:59 11:59 11:59 Intake Total 150 Output Total 0 Balance 150 Weight 84.3 kg Lab Results: Lab Results-Last 24 Hours 02/01/25 02/01/25 02/01/25 Range/Units 13:24 13:30 13:53 WBC 10.6 H (3.98-10.04) x10^3/uL RBC 2.99 L (3.93-5.22) x10^6/uL Hgb 10.1 L (11.2-15.7) g/dL Hct 33.4 L (34.1-44.9) % MCV 111.7 H (79.4-94.8) fL MCH 33.8 H (25.6-32.2) pg MCHC 30.2 L (32.2-35.5) g/dL RDW 15.3 H (11.7-14.4) % Plt Count 331 (182-369) x10^3/uL MPV 10.6 (9.4-12.3) fL Sodium 140 (135-145) mmol/L Potassium 3.7 (3.5-5.1) mmol/L Chloride 108 H (98-107) mmol/L Carbon Dioxide 22 (22-30) mmol/L Anion Gap 12.9 (5-15) MEQ/L BUN 22 H (7-17) mg/dL Creatinine 0.88 (0.52-1.04) mg/dL Estimated GFR 66.4 ML/MIN Glucose 150 H (74-106) mg/dL POC Glucometer (74 to 106) mg/dL Calcium 9.2 (8.4-10.2) mg/dL Total Bilirubin 0.50 (0.2-1.3) mg/dL AST 27 (14-36) U/L ALT 11 (0-35) U/L Alkaline Phosphatase 73 (38-126) U/L Serum Total Protein 6.5 (6.3-8.2) g/dL Albumin 3.5 (3.5-5.0) g/dL Urine Color Yellow (Yellow) Urine Appearance Clear (Clear) Urine pH 5.0 (4.6-8.0) Ur Specific [place] 1.025 (1.005-1.030) Urine Protein 30 (Negative) Urine Glucose (UA) Negative (Negative) mg/dL Urine Ketones 15 A (Negative) Urine Blood Trace (Negative) Urine Nitrite Negative (Negative) Urine Bilirubin Negative (Negative) Urine Urobilinogen 0.2 (0.2) mg/dL Ur Leukocyte Esterase Small A (Negative) U Hyaline Cast (Auto) 11-20 (0-2) /LPF Urine Microscopic RBC 11-20 A (0-5) /HPF Urine Microscopic WBC 51-100 A (0-5) /HPF Ur Epithelial Cells Rare (None Seen) /HPF Amorphous Crystals Moderate A (None Seen) /HPF Urine Bacteria Few A (None Seen) /HPF Urine Culture Reflexed YES (NO) 02/01/25 02/01/25 02/02/25 Range/Units 20:29 21:33 05:48 WBC 7.9 (3.98-10.04) x10^3/uL RBC 3.01 L (3.93-5.22) x10^6/uL Hgb 10.2 L (11.2-15.7) g/dL Hct 33.4 L (34.1-44.9) % MCV 111.0 H (79.4-94.8) fL MCH 33.9 H (25.6-32.2) pg MCHC 30.5 L (32.2-35.5) g/dL RDW 15.5 H (11.7-14.4) % Plt Count 338 (182-369) x10^3/uL MPV 10.7 (9.4-12.3) fL Sodium (135-145) mmol/L Potassium (3.5-5.1) mmol/L Chloride (98-107) mmol/L Carbon Dioxide (22-30) mmol/L Anion Gap (5-15) MEQ/L BUN (7-17) mg/dL Creatinine (0.52-1.04) mg/dL Estimated GFR ML/MIN Glucose (74-106) mg/dL POC Glucometer 71 L 112 H (74 to 106) mg/dL Calcium (8.4-10.2) mg/dL Total Bilirubin (0.2-1.3) mg/dL AST (14-36) U/L ALT (0-35) U/L Alkaline Phosphatase (38-126) U/L Serum Total Protein (6.3-8.2) g/dL Albumin (3.5-5.0) g/dL Urine Color (Yellow) Urine Appearance (Clear) Urine pH (4.6-8.0) Ur Specific [place] (1.005-1.030) Urine Protein (Negative) Urine Glucose (UA) (Negative) mg/dL Urine Ketones (Negative) Urine Blood (Negative) Urine Nitrite (Negative) Urine Bilirubin (Negative) Urine Urobilinogen (0.2) mg/dL Ur Leukocyte Esterase (Negative) U Hyaline Cast (Auto) (0-2) /LPF Urine Microscopic RBC (0-5) /HPF Urine Microscopic WBC (0-5) /HPF Ur Epithelial Cells (None Seen) /HPF Amorphous Crystals (None Seen) /HPF Urine Bacteria (None Seen) /HPF Urine Culture Reflexed (NO) 02/02/25 02/02/25 Range/Units 05:48 07:02 WBC (3.98-10.04) x10^3/uL RBC (3.93-5.22) x10^6/uL Hgb (11.2-15.7) g/dL Hct (34.1-44.9) % MCV (79.4-94.8) fL MCH (25.6-32.2) pg MCHC (32.2-35.5) g/dL RDW (11.7-14.4) % Plt Count (182-369) x10^3/uL MPV (9.4-12.3) fL Sodium 139 (135-145) mmol/L Potassium 3.8 (3.5-5.1) mmol/L Chloride 107 (98-107) mmol/L Carbon Dioxide 23 (22-30) mmol/L Anion Gap 12.7 (5-15) MEQ/L BUN 17 (7-17) mg/dL Creatinine 0.73 (0.52-1.04) mg/dL Estimated GFR 83.1 ML/MIN Glucose 85 (74-106) mg/dL POC Glucometer 87 (74 to 106) mg/dL Calcium 9.1 (8.4-10.2) mg/dL Total Bilirubin 0.60 (0.2-1.3) mg/dL AST 28 (14-36) U/L ALT 10 (0-35) U/L Alkaline Phosphatase 78 (38-126) U/L Serum Total Protein 6.5 (6.3-8.2) g/dL Albumin 3.5 (3.5-5.0) g/dL Urine Color (Yellow) Urine Appearance (Clear) Urine pH (4.6-8.0) Ur Specific [place] (1.005-1.030) Urine Protein (Negative) Urine Glucose (UA) (Negative) mg/dL Urine Ketones (Negative) Urine Blood (Negative) Urine Nitrite (Negative) Urine Bilirubin (Negative) Urine Urobilinogen (0.2) mg/dL Ur Leukocyte Esterase (Negative) U Hyaline Cast (Auto) (0-2) /LPF Urine Microscopic RBC (0-5) /HPF Urine Microscopic WBC (0-5) /HPF Ur Epithelial Cells (None Seen) /HPF Amorphous Crystals (None Seen) /HPF Urine Bacteria (None Seen) /HPF Urine Culture Reflexed (NO) Radiology Exams: Radiology Procedures Category Date Time Status HIP UNI (2V) INCL PEL IF DONE Urgent Exams 02/01/25 18:15 Completed KNEE (3 VIEWS) Stat Exams 02/01/25 13:23 Completed LUMBAR LIMITED (2 OR 3 VIEWS) Stat Exams 02/01/25 13:23 Completed Medications: Medications Generic Name Dose Route Start Last Admin Trade Name Freq PRN Reason Stop Dose Admin Aspirin 81 mg 02/02/25 10:00 Aspirin 81 Mg Tablet.Ec PO 03/04/25 09:59 DAILY OSITO Clonazepam 1 mg 02/02/25 10:00 Clonazepam 0.5 Mg Tablet PO 03/04/25 09:59 BID OSITO Heparin Sodium (Beef Lung) 500 units 02/02/25 05:53 02/02/25 05:54 Heparin Lock Flush Pf 500 Units/5 Ml Syringe PORT FLUSH 03/04/25 05:52 500 units PRN PRN Administration IV PORT FLUSH Metoprolol Tartrate 25 mg 02/01/25 22:00 02/01/25 22:47 Metoprolol Tartrate 25 Mg Tab PO 03/03/25 21:59 25 mg BID OSITO Administration Naproxen 250 mg 02/02/25 07:32 Naproxen 500 Mg Tablet PO 03/04/25 07:31 DAILY PRN PRN PAIN Nitrofurantoin Macrocrystals 100 mg 02/02/25 08:00 Nitrofurantoin Macro 100 Mg Capsule PO 03/04/25 07:59 BIDWM OSITO Non-Formulary Medication 30 mg 02/02/25 10:00 Pioglitazone 30 Mg [Actos 30 Mg] PO 03/04/25 09:59 DAILY OSITO Simvastatin 10 mg 02/01/25 22:00 02/01/25 22:47 Simvastatin 10 Mg Tablet PO 03/03/25 21:59 10 mg HS OSITO Administration Discontinued Medications Generic Name Dose Route Start Last Admin Trade Name Freq PRN Reason Stop Dose Admin Acetaminophen 975 mg 02/01/25 13:22 02/01/25 13:58 Acetaminophen 325 Mg Tablet PO 02/01/25 13:23 975 mg STAT ONE Administration Acetaminophen Confirm 02/01/25 13:57 Acetaminophen 325 Mg Tablet Administered 02/01/25 13:58 Dose 975 mg .ROUTE .STK-MED ONE Acetaminophen 500 mg 02/01/25 18:17 02/01/25 18:29 Acetaminophen 500 Mg Tablet PO 02/01/25 18:18 500 mg STAT STA Administration Clonazepam 1 mg 02/01/25 22:00 02/01/25 22:47 Clonazepam 2 Mg Tablet PO 03/03/25 21:59 1 mg BID OSITO Administration Heparin Sodium (Beef Lung) Confirm 02/02/25 05:33 Heparin Lock Flush Pf 500 Units/5 Ml Syringe Administered 02/02/25 05:34 Dose 500 units .ROUTE .STK-MED ONE Sodium Chloride 1,000 mls @ 999 mls/hr 02/01/25 13:22 02/01/25 15:03 Sodium Chloride 0.9% 1000 Ml IV 02/01/25 14:22 Infused .Q1H1M STA Infusion Sodium Chloride Confirm 02/01/25 13:58 Sodium Chloride 0.9% 1000 Ml Administered 02/01/25 13:59 Dose 1,000 mls @ ud .ROUTE .STK-MED ONE Naproxen Confirm 02/02/25 04:32 Naproxen 500 Mg Tablet Administered 02/02/25 04:33 Dose 500 mg .ROUTE .STK-MED ONE Nitrofurantoin Macrocrystals 100 mg 02/01/25 15:04 02/01/25 15:08 Nitrofurantoin Macro 100 Mg Capsule PO 02/01/25 15:05 100 mg STAT ONE Administration Nitrofurantoin Macrocrystals Confirm 02/01/25 15:07 Nitrofurantoin Macro 100 Mg Capsule Administered 02/01/25 15:08 Dose 100 mg .ROUTE .STK-MED ONE Non-Formulary Medication 10 mg 02/01/25 22:00 02/01/25 22:45 Atorvastatin Calcium [Lipitor] PO 03/03/25 21:59 Not Given HS OSITO Simvastatin Confirm 02/01/25 22:41 Simvastatin 10 Mg Tablet Administered 02/01/25 22:42 Dose 10 mg .ROUTE .STK-MED ONE Assessment/Plan (1) Fall Current Visit: Yes Status: Acute Assessment & Plan: -fall with weakness and ambulatory dysfunction. Patient has had a couple of falls in the past couple of weeks. Will need PT/OT evaluation, possible rehab placement. -hip x ray also without fracture -Will check lumbar CT given bilateral lower extremity weakness. Code(s): W19.XXXA - UNSPECIFIED FALL, INITIAL ENCOUNTER (2) UTI (urinary tract infection) Current Visit: Yes Status: Acute Assessment & Plan: -macrobid 100 mg BID pending urine cultures Code(s): N39.0 - URINARY TRACT INFECTION, SITE NOT SPECIFIED (3) Hypertension Current Visit: Yes Status: Chronic Assessment & Plan: -continue metoprolol Code(s): I10 - ESSENTIAL (PRIMARY) HYPERTENSION (4) Hyperlipidemia Current Visit: Yes Status: Chronic Assessment & Plan: -continue statin Code(s): E78.5 - HYPERLIPIDEMIA, UNSPECIFIED (5) DM2 (diabetes mellitus, type 2) Current Visit: Yes Status: Acute Assessment & Plan: -continue pioglitazone (6) CAD (coronary artery disease) Current Visit: Yes Status: Acute Assessment & Plan: -continue aspirin, statin metoprolol Code(s): I25.10 - ATHSCL HEART DISEASE OF [place] CORONARY ARTERY W/O ANG PCTRS (7) Agoraphobia Current Visit: Yes Status: Acute Assessment & Plan: -continue home klonopin Code(s): F40.00 - AGORAPHOBIA, UNSPECIFIED Telemedicine Encounter - Telemedicine Encounter Telemedicine Encounter: "The entirety of this encounter was performed via Telemedicine" This visit was performed using real-time audio and video connection between my location and thepatients locationwith the assistance of a surrogateat the patients location. Written or verbal consent was obtained from the patient/guardian to perform this visit [facility]. Any patient questions regarding the telemedicine interaction were answered.
[2025-02-02] MEDS ORDERED: MEDICATION INTERVENTION MC SCH (07:45)
[2025-02-02] MEDS: Macrobid 100MG Capsule PO SCH (09:00)
[2025-02-02] MEDS: ECOTRIN 81 MG PO SCH (09:03)
[2025-02-02] MEDS: Naprosyn 500 MG PO PRN (09:03)
[2025-02-02] MEDS ORDERED: BABY ASPIRIN 81 MG CHEW PO SCH (10:00)
[2025-02-02] MEDS: ENOXAPARIN SODIUM SQ SCH (12:32)
[2025-02-03 04:59] LABS: Hematocrit 33.0 % (34.1-44.9); Hemoglobin 9.7 g/dL (11.2-15.7); Mean Corpuscular Hemoglobin 33.0 pg (25.6-32.2); Mean Corpuscular Hgb Concent. 29.4 g/dL (32.2-35.5); Platelet Count 323 x10^3/uL (182-369); Red Blood Count 2.94 x10^6/uL (3.93-5.22); White Blood Count 5.0 x10^3/uL (3.98-10.04)
[2025-02-03 05:21] LABS: Calcium 9.2 mg/dL (8.4-10.2); Carbon Dioxide 24.0 mmol/L (22-30); Creatinine 1 0.74 mg/dL (0.52-1.04); EST GLOMERULAR FILTRATION RATE 81.7 ML/MIN; Glucose 88.0 mg/dL (74-106); Potassium 3.5 mmol/L (3.5-5.1)
--- NOTE | 2025-02-03 05:24 | PCM.NOTE ---
Date and Time: 02/03/25 0518 Subjective Assessment: Ms. Gardner is an 80-year-old female with a past medical history significant for coronary artery disease status post stent placement, hypertension, hyperlipidemia, type 2 diabetes mellitus, and agoraphobia who presented to the emergency department after a fall with subsequent weakness and inability to ambulate. The patient reports that she was walking from the bathroom to her bedroom using her walker when she lost her balance and fell. She denies loss of consciousness, dizziness, or head strike. She was unable to get herself up off the floor and used her cell phone to call her daughter, who subsequently called EMS. On presentation, the patient endorsed bilateral knee pain, worse on the right, as well as right groin pain. She denied chest pain, shortness of breath, palpitations, or focal neurologic deficits at the time of the fall. In the emergency department, vital signs were largely within normal limits. Laboratory studies were overall stable compared to baseline. Urinalysis was suggestive of urinary tract infection; the patient reported some urinary hesitancy but denied dysuria, hematuria, or flank pain. Imaging included lumbar spine and right knee X-rays, which did not demonstrate any acute fractures. A hip X-ray was also negative for fracture. Despite negative imaging, the patient was unable to ambulate safely or care for herself due to significant lower extremity weakness and pain and was therefore admitted for further evaluation and management of fall with ambulatory dysfunction and UTI. On 02/02, the patient continued to report significant weakness in her legs along with persistent pain, and she remains unable to stand or ambulate independently. Given ongoing bilateral lower extremity weakness despite negative plain films, there is concern for an occult lumbar compression fracture or disc pathology. A lumbar CT scan was ordered for further evaluation; however, during transport the patient reported she was unable to lie flat and ultimately refused the scan. 02/03: Met with patient bedside. Endorses continued back pain rating at 5/10 on numerical pain scale. Now agreeable to CT L/S today. Will have CM look into rehab vs [facility]. - Review of Systems Constitutional: Weakness Eyes: No Symptoms Ears, Nose, & Throat: No Symptoms Respiratory: No Symptoms Cardiac: No Symptoms Abdominal/Gastrointestinal: No Symptoms Genitourinary Symptoms: No Symptoms Musculoskeletal: No Symptoms Skin: No Symptoms Neurological: No Symptoms Psychological: No Symptoms Endocrine: No Symptoms Hematologic/Lymphatic: No Symptoms Immunological/Allergic: No Symptoms Objective Exam General Appearance: no apparent distress Neurologic Exam: alert, oriented x 3, cooperative Skin Exam: normal color Eye Exam: PERRL Ears, Nose, Throat Exam: normal ENT inspection Neck Exam: normal inspection Respiratory Exam: normal breath sounds, lungs clear Cardiovascular Exam: regular rate/rhythm, normal heart sounds Gastrointestinal/Abdomen Exam: soft, normal bowel sounds Extremity Exam: normal inspection Back Exam: normal inspection Pelvic Exam: deferred Rectal Exam: deferred Objective Data Vital Signs: Vital Signs - 24 hr Temp Pulse Resp BP Pulse Ox 02/03/25 03:29 97.9 F 64 18 199/79 90 L 02/03/25 00:00 98.1 F 60 16 178/76 95 02/02/25 20:00 97.9 F 69 16 169/70 94 L 02/02/25 16:00 97.7 F 69 16 168/71 96 02/02/25 11:52 97.5 F 62 16 189/79 95 02/02/25 07:29 97.1 F 57 L 16 186/75 97 Pain Assessment - Last Documented Pain Intensity 3 Pain Scale Used FLACC Intake and Output: Intake & Output 01/31/25 02/01/25 02/02/25 02/03/25 11:59 11:59 11:59 11:59 Intake Total 210 120 Output Total 0 250 Balance 210 -130 Weight 84.3 kg Lab Results: Lab Results-Last 24 Hours 02/02/25 02/02/25 02/02/25 Range/Units 05:00 05:48 05:48 WBC 7.9 (3.98-10.04) x10^3/uL RBC 3.01 L (3.93-5.22) x10^6/uL Hgb 10.2 L (11.2-15.7) g/dL Hct 33.4 L (34.1-44.9) % MCV 111.0 H (79.4-94.8) fL MCH 33.9 H (25.6-32.2) pg MCHC 30.5 L (32.2-35.5) g/dL RDW 15.5 H (11.7-14.4) % Plt Count 338 (182-369) x10^3/uL MPV 10.7 (9.4-12.3) fL Sodium 139 (135-145) mmol/L Potassium 3.8 (3.5-5.1) mmol/L Chloride 107 (98-107) mmol/L Carbon Dioxide 23 (22-30) mmol/L Anion Gap 12.7 (5-15) MEQ/L BUN 17 (7-17) mg/dL Creatinine 0.73 (0.52-1.04) mg/dL Estimated GFR 83.1 ML/MIN Glucose 85 (74-106) mg/dL POC Glucometer (74 to 106) mg/dL Hemoglobin A1c 5.77 (4.5-6.0) % Calcium 9.1 (8.4-10.2) mg/dL Total Bilirubin 0.60 (0.2-1.3) mg/dL AST 28 (14-36) U/L ALT 10 (0-35) U/L Alkaline Phosphatase 78 (38-126) U/L Serum Total Protein 6.5 (6.3-8.2) g/dL Albumin 3.5 (3.5-5.0) g/dL 02/02/25 02/02/25 02/02/25 Range/Units 07:02 11:07 16:13 WBC (3.98-10.04) x10^3/uL RBC (3.93-5.22) x10^6/uL Hgb (11.2-15.7) g/dL Hct (34.1-44.9) % MCV (79.4-94.8) fL MCH (25.6-32.2) pg MCHC (32.2-35.5) g/dL RDW (11.7-14.4) % Plt Count (182-369) x10^3/uL MPV (9.4-12.3) fL Sodium (135-145) mmol/L Potassium (3.5-5.1) mmol/L Chloride (98-107) mmol/L Carbon Dioxide (22-30) mmol/L Anion Gap (5-15) MEQ/L BUN (7-17) mg/dL Creatinine (0.52-1.04) mg/dL Estimated GFR ML/MIN Glucose (74-106) mg/dL POC Glucometer 87 128 H 132 H (74 to 106) mg/dL Hemoglobin A1c (4.5-6.0) % Calcium (8.4-10.2) mg/dL Total Bilirubin (0.2-1.3) mg/dL AST (14-36) U/L ALT (0-35) U/L Alkaline Phosphatase (38-126) U/L Serum Total Protein (6.3-8.2) g/dL Albumin (3.5-5.0) g/dL 02/02/25 02/03/25 Range/Units 21:19 04:30 WBC 5.0 (3.98-10.04) x10^3/uL RBC 2.94 L (3.93-5.22) x10^6/uL Hgb 9.7 L (11.2-15.7) g/dL Hct 33.0 L (34.1-44.9) % MCV 112.2 H (79.4-94.8) fL MCH 33.0 H (25.6-32.2) pg MCHC 29.4 L (32.2-35.5) g/dL RDW 15.4 H (11.7-14.4) % Plt Count 323 (182-369) x10^3/uL MPV 10.7 (9.4-12.3) fL Sodium (135-145) mmol/L Potassium (3.5-5.1) mmol/L Chloride (98-107) mmol/L Carbon Dioxide (22-30) mmol/L Anion Gap (5-15) MEQ/L BUN (7-17) mg/dL Creatinine (0.52-1.04) mg/dL Estimated GFR ML/MIN Glucose (74-106) mg/dL POC Glucometer 128 H (74 to 106) mg/dL Hemoglobin A1c (4.5-6.0) % Calcium (8.4-10.2) mg/dL Total Bilirubin (0.2-1.3) mg/dL AST (14-36) U/L ALT (0-35) U/L Alkaline Phosphatase (38-126) U/L Serum Total Protein (6.3-8.2) g/dL Albumin (3.5-5.0) g/dL Radiology Exams: Radiology Procedures Category Date Time Status HIP UNI (2V) INCL PEL IF DONE Urgent Exams 02/01/25 18:15 Completed KNEE (3 VIEWS) Stat Exams 02/01/25 13:23 Completed LUMBAR LIMITED (2 OR 3 VIEWS) Stat Exams 02/01/25 13:23 Completed Medications: Medications Generic Name Dose Route Start Last Admin Trade Name Freolena PRN Reason Stop Dose Admin Aspirin 81 mg 02/02/25 10:00 02/02/25 09:03 Aspirin 81 Mg Tablet.Ec PO 03/04/25 09:59 81 mg DAILY OSITO Administration Clonazepam 1 mg 02/02/25 10:00 02/02/25 21:15 Clonazepam 0.5 Mg Tablet PO 03/04/25 09:59 1 mg BID OSITO Administration Enoxaparin Sodium 40 mg 02/02/25 12:00 02/02/25 12:32 Enoxaparin Sodium 40 Mg/0.4 Ml Syringe SQ 03/04/25 11:59 40 mg DAILY OSITO Administration Heparin Sodium (Beef Lung) 500 units 02/02/25 05:53 02/03/25 04:11 Heparin Lock Flush Pf 500 Units/5 Ml Syringe PORT FLUSH 03/04/25 05:52 500 units PRN PRN Administration IV PORT FLUSH Metoprolol Tartrate 25 mg 02/01/25 22:00 02/02/25 21:23 Metoprolol Tartrate 25 Mg Tab PO 03/03/25 21:59 25 mg BID OSITO Administration Miscellaneous Information 1 each 02/02/25 07:45 Medication Intervention 1 Each Each 03/04/25 07:44 .RN TO CHECK OSITO Naproxen 250 mg 02/02/25 07:32 02/02/25 09:03 Naproxen 500 Mg Tablet PO 03/04/25 07:31 250 mg DAILY PRN PRN Administration PAIN Nitrofurantoin Macrocrystals 100 mg 02/02/25 08:00 02/02/25 17:21 Nitrofurantoin Macro 100 Mg Capsule PO 03/04/25 07:59 100 mg BIDWM OSITO Administration Simvastatin 10 mg 02/01/25 22:00 02/02/25 21:23 Simvastatin 10 Mg Tablet PO 03/03/25 21:59 10 mg HS OSITO Administration Discontinued Medications Generic Name Dose Route Start Last Admin Trade Name Freolena PRN Reason Stop Dose Admin Acetaminophen 975 mg 02/01/25 13:22 02/01/25 13:58 Acetaminophen 325 Mg Tablet PO 02/01/25 13:23 975 mg STAT ONE Administration Acetaminophen Confirm 02/01/25 13:57 Acetaminophen 325 Mg Tablet Administered 02/01/25 13:58 Dose 975 mg .ROUTE .STK-MED ONE Acetaminophen 500 mg 02/01/25 18:17 02/01/25 18:29 Acetaminophen 500 Mg Tablet PO 02/01/25 18:18 500 mg STAT STA Administration Clonazepam 1 mg 02/01/25 22:00 02/01/25 22:47 Clonazepam 2 Mg Tablet PO 03/03/25 21:59 1 mg BID OSITO Administration Heparin Sodium (Beef Lung) Confirm 02/02/25 05:33 Heparin Lock Flush Pf 500 Units/5 Ml Syringe Administered 02/02/25 05:34 Dose 500 units .ROUTE .STK-MED ONE Sodium Chloride 1,000 mls @ 999 mls/hr 02/01/25 13:22 02/01/25 15:03 Sodium Chloride 0.9% 1000 Ml IV 02/01/25 14:22 Infused .Q1H1M STA Infusion Sodium Chloride Confirm 02/01/25 13:58 Sodium Chloride 0.9% 1000 Ml Administered 02/01/25 13:59 Dose 1,000 mls @ ud .ROUTE .STK-MED ONE Naproxen Confirm 02/02/25 04:32 Naproxen 500 Mg Tablet Administered 02/02/25 04:33 Dose 500 mg .ROUTE .STK-MED ONE Nitrofurantoin Macrocrystals 100 mg 02/01/25 15:04 02/01/25 15:08 Nitrofurantoin Macro 100 Mg Capsule PO 02/01/25 15:05 100 mg STAT ONE Administration Nitrofurantoin Macrocrystals Confirm 02/01/25 15:07 Nitrofurantoin Macro 100 Mg Capsule Administered 02/01/25 15:08 Dose 100 mg .ROUTE .STK-MED ONE Non-Formulary Medication 10 mg 02/01/25 22:00 02/01/25 22:45 Atorvastatin Calcium [Lipitor] PO 03/03/25 21:59 Not Given HS OSITO Simvastatin Confirm 02/01/25 22:41 Simvastatin 10 Mg Tablet Administered 02/01/25 22:42 Dose 10 mg .ROUTE .STK-MED ONE Assessment/Plan (1) UTI (urinary tract infection) Current Visit: Yes Status: Acute Assessment & Plan: -UA suggestive of infection with reported urinary hesitancy. -No systemic signs of sepsis. -Started on Macrobid 100 mg BID -Monitor clinical response and culture data. -culture with probable skin contaminant on pre-owen, continue abx until final Code(s): N39.0 - URINARY TRACT INFECTION, SITE NOT SPECIFIED (2) Fall Current Visit: Yes Status: Acute Assessment & Plan: -Mechanical fall at home with subsequent inability to ambulate. -History of multiple recent falls over the past several weeks. -X-rays of lumbar spine, right knee, and hip without acute fracture. -Persistent bilateral lower extremity weakness and pain. -Lumbar CT ordered to evaluate for occult compression fracture or disc herniation; patient refused imaging due to inability to lie flat. -Will reassess willingness for imaging; consider alternative positioning or MRI if feasible. -PT/OT consult for functional assessment. -Anticipate need for short-term rehab placement given inability to ambulate safely. Code(s): W19.XXXA - UNSPECIFIED FALL, INITIAL ENCOUNTER (3) Agoraphobia Current Visit: Yes Status: Acute Assessment & Plan: -Chronic. -Continue home clonazepam. -Likely contributing to difficulty tolerating imaging and hospital environment. -Provide reassurance and clear explanations before procedures. Code(s): F40.00 - AGORAPHOBIA, UNSPECIFIED (4) CAD (coronary artery disease) Current Visit: Yes Status: Acute Assessment & Plan: -Chronic, stable. -Continue aspirin, statin, and metoprolol. -No active ischemic symptoms. Code(s): I25.10 - ATHSCL HEART DISEASE OF [place] CORONARY ARTERY W/O ANG PCTRS (5) DM2 (diabetes mellitus, type 2) Current Visit: Yes Status: Acute Assessment & Plan: -Chronic. -Continue pioglitazone. -A1c -ADA diet (6) Hyperlipidemia Current Visit: Yes Status: Chronic Assessment & Plan: -Chronic. -Continue statin therapy. Code(s): E78.5 - HYPERLIPIDEMIA, UNSPECIFIED (7) Difficulty in walking Current Visit: Yes Status: Acute Assessment & Plan: -CT lumbar/Spine ordered Code(s): R26.2 - DIFFICULTY IN WALKING, NOT ELSEWHERE CLASSIFIED (8) Hypertension Current Visit: Yes Status: Chronic Assessment & Plan: -Chronic. -Continue home metoprolol. -Monitor blood pressures. VTE:Heparin Dispo:1-3 days Full Code Plan of care time spent greater than 35 mins Code(s): I10 - ESSENTIAL (PRIMARY) HYPERTENSION
[2025-02-03] MEDS: MORPHINE SULFATE 2 MG INJ IV ONE (15:42)
--- NOTE | 2025-02-03 16:52 | XRAY ---
Indication: Low back pain. Multiple contiguous axial images obtained through lumbar spine. Sagittal and coronal reformatted images obtained. Comparison: None Osseous structures demineralized consistent with patient's age. Axial images negative for acute fracture, suspicious bony lesions, or spinal canal stenosis. Mild broad-based L2-L5 disc osteophyte complex, mild L2-L5 degenerative vacuum disc phenomena, and mild bilateral L2-S1 degenerative facet arthropathy. Previous bilateral L5 laminectomy and right L4 hemilaminectomy. Sagittal and coronal reformatted images demonstrates normal lumbar lordosis with mild levoscoliosis centered at L2-L3. L3-S1 disc space narrowing greatest at L5-S1. No acute compression fracture or subluxation. Visualized noncontrasted soft tissues demonstrates extensive scattered vascular calcifications and 2.6 cm right renal exophytic cyst. Incidental tiny splenic calcified granulomas. Impression: Osteopenia, mild levoscoliosis, mild/moderate multilevel degenerative spondylosis, L4/L5 laminectomy, right renal cyst, and extensive vascular calcifications. No acute findings.
--- NOTE | 2025-02-04 05:10 | PCM.NOTE ---
Date and Time: 02/04/25 0509 Subjective Assessment: Ms. Gardner is an 80-year-old female with a past medical history significant for coronary artery disease status post stent placement, hypertension, hyperlipidemia, type 2 diabetes mellitus, and agoraphobia who presented to the emergency department after a fall with subsequent weakness and inability to ambulate. The patient reports that she was walking from the bathroom to her bedroom using her walker when she lost her balance and fell. She denies loss of consciousness, dizziness, or head strike. She was unable to get herself up off the floor and used her cell phone to call her daughter, who subsequently called EMS. On presentation, the patient endorsed bilateral knee pain, worse on the right, as well as right groin pain. She denied chest pain, shortness of breath, palpitations, or focal neurologic deficits at the time of the fall. In the emergency department, vital signs were largely within normal limits. Laboratory studies were overall stable compared to baseline. Urinalysis was suggestive of urinary tract infection; the patient reported some urinary hesitancy but denied dysuria, hematuria, or flank pain. Imaging included lumbar spine and right knee X-rays, which did not demonstrate any acute fractures. A hip X-ray was also negative for fracture. Despite negative imaging, the patient was unable to ambulate safely or care for herself due to significant lower extremity weakness and pain and was therefore admitted for further evaluation and management of fall with ambulatory dysfunction and UTI. On 02/02, the patient continued to report significant weakness in her legs along with persistent pain, and she remains unable to stand or ambulate independently. Given ongoing bilateral lower extremity weakness despite negative plain films, there is concern for an occult lumbar compression fracture or disc pathology. A lumbar CT scan was ordered for further evaluation; however, during transport the patient reported she was unable to lie flat and ultimately refused the scan. 02/03: Met with patient bedside. Endorses continued back pain rating at 5/10 on numerical pain scale. Now agreeable to CT L/S today. Will have CM look into rehab vs [facility]. Objective Data Vital Signs: Vital Signs - 24 hr Temp Pulse Resp BP Pulse Ox 02/04/25 03:55 96.9 F 63 18 155/66 96 02/03/25 22:52 97.1 F 66 18 171/76 97 02/03/25 18:42 98.0 F 72 17 159/67 94 L 02/03/25 16:00 97.1 F 80 16 157/72 96 02/03/25 11:51 97.7 F 64 18 170/71 95 02/03/25 07:00 97.8 F 63 16 177/77 94 L Pain Assessment - Last Documented Pain Intensity 3 Pain Scale Used 0-10 Pain Scale Intake and Output: Intake & Output 02/01/25 02/02/25 02/03/25 02/04/25 11:59 11:59 11:59 11:59 Intake Total 183 170 1682 Output Total 0 250 150 Balance 210 350 910 Weight 84.3 kg Lab Results: Lab Results-Last 24 Hours 02/03/25 02/03/25 02/03/25 Range/Units 04:30 07:18 11:40 Sodium 139 (135-145) mmol/L Potassium 3.5 (3.5-5.1) mmol/L Chloride 108 H (98-107) mmol/L Carbon Dioxide 24 (22-30) mmol/L Anion Gap 10.3 (5-15) MEQ/L BUN 17 (7-17) mg/dL Creatinine 0.74 (0.52-1.04) mg/dL Estimated GFR 81.7 ML/MIN Glucose 88 (74-106) mg/dL POC Glucometer 91 126 H (74 to 106) mg/dL Calcium 9.2 (8.4-10.2) mg/dL Creatine Kinase (30-135) U/L 02/03/25 02/03/25 02/03/25 Range/Units 13:00 15:58 19:48 Sodium (135-145) mmol/L Potassium (3.5-5.1) mmol/L Chloride (98-107) mmol/L Carbon Dioxide (22-30) mmol/L Anion Gap (5-15) MEQ/L BUN (7-17) mg/dL Creatinine (0.52-1.04) mg/dL Estimated GFR ML/MIN Glucose (74-106) mg/dL POC Glucometer 121 H 148 H (74 to 106) mg/dL Calcium (8.4-10.2) mg/dL Creatine Kinase 35 (30-135) U/L Radiology Exams: Radiology Procedures Category Date Time Status LUMBAR SPINE W/O [CT] Urgent Exams 02/03/25 13:49 Completed Medications: Medications Generic Name Dose Route Start Last Admin Trade Name Bobq PRN Reason Stop Dose Admin Aspirin 81 mg 02/02/25 10:00 02/03/25 09:09 Aspirin 81 Mg Tablet.Ec PO 03/04/25 09:59 81 mg DAILY OSITO Administration Clonazepam 1 mg 02/02/25 10:00 02/03/25 22:28 Clonazepam 0.5 Mg Tablet PO 03/04/25 09:59 1 mg BID OSITO Administration Enoxaparin Sodium 40 mg 02/02/25 12:00 02/03/25 09:13 Enoxaparin Sodium 40 Mg/0.4 Ml Syringe SQ 03/04/25 11:59 40 mg DAILY OSITO Administration Heparin Sodium (Beef Lung) 500 units 02/02/25 05:53 02/03/25 04:11 Heparin Lock Flush Pf 500 Units/5 Ml Syringe PORT FLUSH 03/04/25 05:52 500 units PRN PRN Administration IV PORT FLUSH Metoprolol Tartrate 25 mg 02/01/25 22:00 02/03/25 22:28 Metoprolol Tartrate 25 Mg Tab PO 03/03/25 21:59 25 mg BID OSITO Administration Miscellaneous Information 1 each 02/02/25 07:45 Medication Intervention 1 Each Each 03/04/25 07:44 .RN TO CHECK OSITO Naproxen 250 mg 02/02/25 07:32 02/03/25 09:11 Naproxen 500 Mg Tablet PO 03/04/25 07:31 250 mg DAILY PRN PRN Administration PAIN Nitrofurantoin Macrocrystals 100 mg 02/02/25 08:00 02/03/25 18:13 Nitrofurantoin Macro 100 Mg Capsule PO 03/04/25 07:59 100 mg BIDWM OSITO Administration Simvastatin 10 mg 02/01/25 22:00 02/03/25 22:28 Simvastatin 10 Mg Tablet PO 03/03/25 21:59 10 mg HS OSITO Administration Discontinued Medications Generic Name Dose Route Start Last Admin Trade Name Amalia PRN Reason Stop Dose Admin Acetaminophen 975 mg 02/01/25 13:22 02/01/25 13:58 Acetaminophen 325 Mg Tablet PO 02/01/25 13:23 975 mg STAT ONE Administration Acetaminophen Confirm 02/01/25 13:57 Acetaminophen 325 Mg Tablet Administered 02/01/25 13:58 Dose 975 mg .ROUTE .STK-MED ONE Acetaminophen 500 mg 02/01/25 18:17 02/01/25 18:29 Acetaminophen 500 Mg Tablet PO 02/01/25 18:18 500 mg STAT STA Administration Clonazepam 1 mg 02/01/25 22:00 02/01/25 22:47 Clonazepam 2 Mg Tablet PO 03/03/25 21:59 1 mg BID OSITO Administration Heparin Sodium (Beef Lung) Confirm 02/02/25 05:33 Heparin Lock Flush Pf 500 Units/5 Ml Syringe Administered 02/02/25 05:34 Dose 500 units .ROUTE .STK-MED ONE Sodium Chloride 1,000 mls @ 999 mls/hr 02/01/25 13:22 02/01/25 15:03 Sodium Chloride 0.9% 1000 Ml IV 02/01/25 14:22 Infused .Q1H1M STA Infusion Sodium Chloride Confirm 02/01/25 13:58 Sodium Chloride 0.9% 1000 Ml Administered 02/01/25 13:59 Dose 1,000 mls @ ud .ROUTE .STK-MED ONE Morphine Sulfate 1 mg 02/03/25 13:50 02/03/25 15:42 Morphine Sulfate 2 Mg/Ml Inj IV 02/03/25 13:51 1 mg 1XONLY ONE Administration Naproxen Confirm 02/02/25 04:32 Naproxen 500 Mg Tablet Administered 02/02/25 04:33 Dose 500 mg .ROUTE .STK-MED ONE Nitrofurantoin Macrocrystals 100 mg 02/01/25 15:04 02/01/25 15:08 Nitrofurantoin Macro 100 Mg Capsule PO 02/01/25 15:05 100 mg STAT ONE Administration Nitrofurantoin Macrocrystals Confirm 02/01/25 15:07 Nitrofurantoin Macro 100 Mg Capsule Administered 02/01/25 15:08 Dose 100 mg .ROUTE .STK-MED ONE Non-Formulary Medication 10 mg 02/01/25 22:00 02/01/25 22:45 Atorvastatin Calcium [Lipitor] PO 03/03/25 21:59 Not Given HS OSITO Simvastatin Confirm 02/01/25 22:41 Simvastatin 10 Mg Tablet Administered 02/01/25 22:42 Dose 10 mg .ROUTE .STK-MED ONE Multi-Disciplinary Progress Notes: Multi-Disciplinary Progress Notes 12/26/25 13:22 Case Management Note by Myriam Ocampo PATIENT DID NOT DO WELL WITH PHYSICAL THERAPY- WEAKNESS NOTED. PATIENT NEEDING ASSISTANCE WITH TRANSFERS. THIS RN INTERVENTIONAL AND PHYSICAL THERAPIST, RIMMA, HAD LONG CONVERSATION WITH PATIENT REGARDING DC PLANS. PATIENT REALLY NEEDS REHAB STAY HOWEVER, SHE DOES NOT MEET QUALIFICATIONS FOR MEDICARE TO COVER IT AND ONLY HAS [place] MEDICAID. SHE REPORTS SHE DOES NOT HAVE THE MONEY TO PRIVATE PAY AND IS NOT WILLING TO CONVERT OVER TO FULL MEDICAID BY GETTING SIGNING OVER HER INCOME. SHE REPORTS HER DAUGHTER RELIES ON HER INCOME FOR HER BILLS WELL. PATIENT NOTIFIED AND UNDERSTANDS SHE IS AT EXTREME RISK FOR FALLS AT HOME AND SHOULD NOT BE AMBULATING OR TRANSFERRING BY HERSELF AT HOME. PATIENT UNDERSTANDS THIS BUT AGAIN IS CHOOSING TO GO HOME AT THIS TIME. HHC AND HOSPICE WERE BOTH EXPLAINED IN DEPTH AND OFFERED TO PATIENT. SHE WOULD LIKE TO DC HOME WITH HHC AT THIS TIME IN HOPES OF WORKING WITH PHYSICAL THERAPY AND GETTING STRONGER AT HOME. PATIENT REPORTS HER HOME IS ONE LEVEL AND THAT A WHEELCHAIR COULD GET AROUND IT. TRANSPORT CHAIR ORDERED THRU [facility] FOR DELIVERY TO [facility] PRIOR TO DC. HHC WAS SET UP WITH [facility]. CALLED AND S/W DAUGHTER JAZZ- SHE WAS EXPLAINED ALL THE ABOVE AND VERIFIED UNDERSTANDING. SHE PLANS TO BE WITH PATIENT THE WEEKEND AND MAKE FURTHER PLANS FOR PATIENT. SHE FEELS HOSPICE IS MOST APPROPRIATE FOR PATIENT. LIST OF PRIVATE SITTERS AND HHC/HOSPICE AGENCIES PLACED IN PATIENT'S DC FOLDER FOR DAUGHTER REFERENCE AND ASSISTANCE AT HOME. SHE WAS NOTIFIED THAT A BSC COULD BE BENEFICIAL FOR PATIENT AT HOME. SHE INQUIRED ABOUT A [facility]- SHE WAS NOTIFIED THESE ARE NOT COVERED BY MEDICARE BUT COULD MAYBE BE CONSIDERED BY HOSPICE. DAUGHTER PLANS TO PROVIDE CARE FOR PATIENT AT TIME OF DC WITH ASSISTANCE OF HHC. REFERRAL ALSO MADE TO [facility] FOR CONT'D SUPPORT. DAUGHTER WORRIED ABOUT GETTING PATIENT IN HER HOME- [employer] PHONE NUMBER PLACED IN DC INSTRUCTIONS AND DAUGHTER NOTIFIED TO CALL WHEN SHE GETS PATIENT HOME TO GET ASSISTANCE. SHE VERIFIED UNDERSTANDING. DAUGHTER WILL PICK PATIENT UP AT TIME OF DC. NURSING TO CALL HER ONCE SHE IS READY AND WHEELCHAIR HAS BEEN DELIVERED Initialized on 02/03/25 13:22 - END OF NOTE 02/03/25 12:46 Case Management Note by Myriam Ocampo REFERRAL EMAILED TO [facility]. THEY WERE NOTIFIED PATIENT IS DCING TODAY. THEY HAVE ACCEPTED. THEY WILL NEED FAXED THE DC INSTRUCTIONS, DC MED LIST AND DC SUMMARY TO [phone] Initialized on 02/03/25 12:46 - END OF NOTE Assessment/Plan (1) UTI (urinary tract infection) Current Visit: Yes Status: Acute Assessment & Plan: -UA suggestive of infection with reported urinary hesitancy. -No systemic signs of sepsis. -Started on Macrobid 100 mg BID -Monitor clinical response and culture data. -culture with probable skin contaminant on pre-owen, continue abx until final Code(s): N39.0 - URINARY TRACT INFECTION, SITE NOT SPECIFIED (2) Fall Current Visit: Yes Status: Acute Assessment & Plan: -Mechanical fall at home with subsequent inability to ambulate. -History of multiple recent falls over the past several weeks. -X-rays of lumbar spine, right knee, and hip without acute fracture. -Persistent bilateral lower extremity weakness and pain. -Lumbar CT ordered to evaluate for occult compression fracture or disc herniation; patient refused imaging due to inability to lie flat. -Will reassess willingness for imaging; consider alternative positioning or MRI if feasible. -PT/OT consult for functional assessment. -Anticipate need for short-term rehab placement given inability to ambulate safely. Code(s): W19.XXXA - UNSPECIFIED FALL, INITIAL ENCOUNTER (3) Agoraphobia Current Visit: Yes Status: Acute Assessment & Plan: -Chronic. -Continue home clonazepam. -Likely contributing to difficulty tolerating imaging and hospital environment. -Provide reassurance and clear explanations before procedures. Code(s): F40.00 - AGORAPHOBIA, UNSPECIFIED (4) CAD (coronary artery disease) Current Visit: Yes Status: Acute Assessment & Plan: -Chronic, stable. -Continue aspirin, statin, and metoprolol. -No active ischemic symptoms. Code(s): I25.10 - ATHSCL HEART DISEASE OF [place] CORONARY ARTERY W/O ANG PCTRS (5) DM2 (diabetes mellitus, type 2) Current Visit: Yes Status: Acute Assessment & Plan: -Chronic. -Continue pioglitazone. -A1c -ADA diet (6) Hyperlipidemia Current Visit: Yes Status: Chronic Assessment & Plan: -Chronic. -Continue statin therapy. Code(s): E78.5 - HYPERLIPIDEMIA, UNSPECIFIED (7) Difficulty in walking Current Visit: Yes Status: Acute Assessment & Plan: -CT lumbar/Spine ordered Code(s): R26.2 - DIFFICULTY IN WALKING, NOT ELSEWHERE CLASSIFIED (8) Hypertension Current Visit: Yes Status: Chronic Assessment & Plan: -Chronic. -Continue home metoprolol. -Monitor blood pressures. VTE:Heparin Dispo:1-3 days Full Code Plan of care time spent greater than 35 mins Code(s): N39.0 - URINARY TRACT INFECTION, SITE NOT SPECIFIED (2) Fall Current Visit: Yes Status: Acute Code(s): W19.XXXA - UNSPECIFIED FALL, INITIAL ENCOUNTER (3) Agoraphobia Current Visit: Yes Status: Acute Code(s): F40.00 - AGORAPHOBIA, UNSPECIFIED (4) CAD (coronary artery disease) Current Visit: Yes Status: Acute Code(s): I25.10 - ATHSCL HEART DISEASE OF [place] CORONARY ARTERY W/O ANG PCTRS (5) DM2 (diabetes mellitus, type 2) Current Visit: Yes Status: Acute (6) Hyperlipidemia Current Visit: Yes Status: Chronic Code(s): E78.5 - HYPERLIPIDEMIA, UNSPECIFIED (7) Difficulty in walking Current Visit: Yes Status: Acute Code(s): R26.2 - DIFFICULTY IN WALKING, NOT ELSEWHERE CLASSIFIED (8) Hypertension Current Visit: Yes Status: Chronic Code(s): I10 - ESSENTIAL (PRIMARY) HYPERTENSION
[2025-02-04 06:02] LABS: BASOPHIL % 1.5 % (0.1-1.2); Basophil (Absolute #) 0.07 x10^3/uL (0.01-0.08); Eosinophil (Absolute #) 0.11 x10^3/uL (0.04-0.36); Hematocrit 31.4 % (34.1-44.9); Hemoglobin 9.4 g/dL (11.2-15.7); IMMATURE GRAN # 0.01 x10^3u/L (0.001-0.031); IMMATURE GRAN % 0.2 % (0.001-0.429); Lymphocyte (Absolute #) 0.82 x10^3/uL (1.18-3.74); Mean Corpuscular Hemoglobin 33.2 pg (25.6-32.2); Mean Corpuscular Hgb Concent. 29.9 g/dL (32.2-35.5); Monocyte (Absolute #) 0.48 x10^3/uL (0.24-0.86); NUCLEATED RBC # 0.00 x10^3u/L (0.00-0.012); NUCLEATED RBC % 0.0 % (0.00-0.2); Platelet Count 324 x10^3/uL (182-369); Red Blood Count 2.83 x10^6/uL (3.93-5.22); White Blood Count 4.8 x10^3/uL (3.98-10.04)
[2025-02-04 06:31] LABS: Calcium 9.1 mg/dL (8.4-10.2); Carbon Dioxide 26.0 mmol/L (22-30); Creatinine 1 0.87 mg/dL (0.52-1.04); EST GLOMERULAR FILTRATION RATE 67.3 ML/MIN; Glucose 84.0 mg/dL (74-106); Potassium 3.6 mmol/L (3.5-5.1); SGOT/AST 23.0 U/L (14-36); SGPT/ALT 9.0 U/L (0-35); Total Protein 6.2 g/dL (6.3-8.2)
--- NOTE | 2025-02-04 10:12 | PCM.NOTE ---
Date and Time: 02/04/25 1004 Subjective Assessment: Ms. Gardner is an 80-year-old female with a past medical history significant for coronary artery disease status post stent placement, hypertension, hyperlipidemia, type 2 diabetes mellitus, and agoraphobia who presented to the emergency department after a fall with subsequent weakness and inability to ambulate. The patient reports that she was walking from the bathroom to her bedroom using her walker when she lost her balance and fell. She denies loss of consciousness, dizziness, or head strike. She was unable to get herself up off the floor and used her cell phone to call her daughter, who subsequently called EMS. On presentation, the patient endorsed bilateral knee pain, worse on the right, as well as right groin pain. She denied chest pain, shortness of breath, palpitations, or focal neurologic deficits at the time of the fall. In the emergency department, vital signs were largely within normal limits. Laboratory studies were overall stable compared to baseline. Urinalysis was suggestive of urinary tract infection; the patient reported some urinary hesitancy but denied dysuria, hematuria, or flank pain. Imaging included lumbar spine and right knee X-rays, which did not demonstrate any acute fractures. A hip X-ray was also negative for fracture. Despite negative imaging, the patient was unable to ambulate safely or care for herself due to significant lower extremity weakness and pain and was therefore admitted for further evaluation and management of fall with ambulatory dysfunction and UTI. On 02/02, the patient continued to report significant weakness in her legs along with persistent pain, and she remains unable to stand or ambulate independently. Given ongoing bilateral lower extremity weakness despite negative plain films, there is concern for an occult lumbar compression fracture or disc pathology. A lumbar CT scan was ordered for further evaluation; however, during transport the patient reported she was unable to lie flat and ultimately refused the scan. 02/04: Met with patient bedside. Back pain improved some, patient able to stand but states hard to move around in bed. CT L/S with no acute findings. CM to look into rehab vs [facility]. Patient states she lives at home and daughter lives with her, but works and will not be there all day to help care for her. Pending discharge plan. - Review of Systems Constitutional: No Symptoms Eyes: No Symptoms Ears, Nose, & Throat: No Symptoms Respiratory: No Symptoms Cardiac: No Symptoms Abdominal/Gastrointestinal: No Symptoms Genitourinary Symptoms: No Symptoms Musculoskeletal: Back Pain Skin: No Symptoms Neurological: Dizziness Psychological: No Symptoms Endocrine: No Symptoms Hematologic/Lymphatic: No Symptoms Immunological/Allergic: No Symptoms All Other Systems: Reviewed and Negative Objective Exam General Appearance: no apparent distress Neurologic Exam: alert, oriented x 3, cooperative, normal mood/affect Skin Exam: normal color, warm, dry Eye Exam: PERRL Ears, Nose, Throat Exam: normal ENT inspection Neck Exam: normal inspection Respiratory Exam: normal breath sounds Cardiovascular Exam: regular rate/rhythm Gastrointestinal/Abdomen Exam: soft Extremity Exam: normal inspection Back Exam: normal inspection Pelvic Exam: deferred Rectal Exam: deferred Objective Data Vital Signs: Vital Signs - 24 hr Temp Pulse Resp BP Pulse Ox 02/04/25 08:00 97.3 F 59 L 16 159/70 94 L 02/04/25 03:55 96.9 F 63 18 155/66 96 02/03/25 22:52 97.1 F 66 18 171/76 97 02/03/25 18:42 98.0 F 72 17 159/67 94 L 02/03/25 16:00 97.1 F 80 16 157/72 96 02/03/25 11:51 97.7 F 64 18 170/71 95 Pain Assessment - Last Documented Pain Intensity 3 Pain Scale Used 0-10 Pain Scale Intake and Output: Intake & Output 02/02/25 02/03/25 02/04/25 02/05/25 06:59 06:59 06:59 06:59 Intake Total 962 891 2711 240 Output Total 0 250 150 Balance 144 637 9224 240 Weight 84.3 kg Lab Results: Lab Results-Last 24 Hours 02/03/25 02/03/25 02/03/25 Range/Units 11:40 13:00 15:58 WBC (3.98-10.04) x10^3/uL RBC (3.93-5.22) x10^6/uL Hgb (11.2-15.7) g/dL Hct (34.1-44.9) % MCV (79.4-94.8) fL MCH (25.6-32.2) pg MCHC (32.2-35.5) g/dL RDW (11.7-14.4) % Plt Count (182-369) x10^3/uL MPV (9.4-12.3) fL Gran % (34.0-71.1) % Immature Gran % (Auto) (0.001-0.429) % Nucleat RBC Rel Count (0.00-0.2) % Eos # (Auto) (0.04-0.36) x10^3/uL Immature Gran # (Auto) (0.001-0.031) x10^3u/L Absolute Lymphs (auto) (1.18-3.74) x10^3/uL Absolute Monos (auto) (0.24-0.86) x10^3/uL Absolute Nucleated RBC (0.00-0.012) x10^3u/L Lymphocytes % (19.3-51.7) % Monocytes % (4.7-12.5) % Eosinophils % (0.7-5.8) % Basophils % (0.1-1.2) % Absolute Granulocytes (1.56-6.13) x10^3/uL Basophils # (0.01-0.08) x10^3/uL Sodium (135-145) mmol/L Potassium (3.5-5.1) mmol/L Chloride (98-107) mmol/L Carbon Dioxide (22-30) mmol/L Anion Gap (5-15) MEQ/L BUN (7-17) mg/dL Creatinine (0.52-1.04) mg/dL Estimated GFR ML/MIN Glucose (74-106) mg/dL POC Glucometer 126 H 121 H (74 to 106) mg/dL Calcium (8.4-10.2) mg/dL Total Bilirubin (0.2-1.3) mg/dL AST (14-36) U/L ALT (0-35) U/L Alkaline Phosphatase (38-126) U/L Creatine Kinase 35 (30-135) U/L Serum Total Protein (6.3-8.2) g/dL Albumin (3.5-5.0) g/dL 02/03/25 02/04/25 02/04/25 Range/Units 19:48 05:43 05:43 WBC 4.8 (3.98-10.04) x10^3/uL RBC 2.83 L (3.93-5.22) x10^6/uL Hgb 9.4 L (11.2-15.7) g/dL Hct 31.4 L (34.1-44.9) % MCV 111.0 H (79.4-94.8) fL MCH 33.2 H (25.6-32.2) pg MCHC 29.9 L (32.2-35.5) g/dL RDW 15.3 H (11.7-14.4) % Plt Count 324 (182-369) x10^3/uL MPV 10.1 (9.4-12.3) fL Gran % 68.7 (34.0-71.1) % Immature Gran % (Auto) 0.2 (0.001-0.429) % Nucleat RBC Rel Count 0.0 (0.00-0.2) % Eos # (Auto) 0.11 (0.04-0.36) x10^3/uL Immature Gran # (Auto) 0.01 (0.001-0.031) x10^3u/L Absolute Lymphs (auto) 0.82 L (1.18-3.74) x10^3/uL Absolute Monos (auto) 0.48 (0.24-0.86) x10^3/uL Absolute Nucleated RBC 0.00 (0.00-0.012) x10^3u/L Lymphocytes % 17.2 L (19.3-51.7) % Monocytes % 10.1 (4.7-12.5) % Eosinophils % 2.3 (0.7-5.8) % Basophils % 1.5 H (0.1-1.2) % Absolute Granulocytes 3.27 (1.56-6.13) x10^3/uL Basophils # 0.07 (0.01-0.08) x10^3/uL Sodium 140 (135-145) mmol/L Potassium 3.6 (3.5-5.1) mmol/L Chloride 108 H (98-107) mmol/L Carbon Dioxide 26 (22-30) mmol/L Anion Gap 9.0 (5-15) MEQ/L BUN 21 H (7-17) mg/dL Creatinine 0.87 (0.52-1.04) mg/dL Estimated GFR 67.3 ML/MIN Glucose 84 (74-106) mg/dL POC Glucometer 148 H (74 to 106) mg/dL Calcium 9.1 (8.4-10.2) mg/dL Total Bilirubin 0.40 (0.2-1.3) mg/dL AST 23 (14-36) U/L ALT 9 (0-35) U/L Alkaline Phosphatase 75 (38-126) U/L Creatine Kinase (30-135) U/L Serum Total Protein 6.2 L (6.3-8.2) g/dL Albumin 3.2 L (3.5-5.0) g/dL 02/04/25 Range/Units 07:28 WBC (3.98-10.04) x10^3/uL RBC (3.93-5.22) x10^6/uL Hgb (11.2-15.7) g/dL Hct (34.1-44.9) % MCV (79.4-94.8) fL MCH (25.6-32.2) pg MCHC (32.2-35.5) g/dL RDW (11.7-14.4) % Plt Count (182-369) x10^3/uL MPV (9.4-12.3) fL Gran % (34.0-71.1) % Immature Gran % (Auto) (0.001-0.429) % Nucleat RBC Rel Count (0.00-0.2) % Eos # (Auto) (0.04-0.36) x10^3/uL Immature Gran # (Auto) (0.001-0.031) x10^3u/L Absolute Lymphs (auto) (1.18-3.74) x10^3/uL Absolute Monos (auto) (0.24-0.86) x10^3/uL Absolute Nucleated RBC (0.00-0.012) x10^3u/L Lymphocytes % (19.3-51.7) % Monocytes % (4.7-12.5) % Eosinophils % (0.7-5.8) % Basophils % (0.1-1.2) % Absolute Granulocytes (1.56-6.13) x10^3/uL Basophils # (0.01-0.08) x10^3/uL Sodium (135-145) mmol/L Potassium (3.5-5.1) mmol/L Chloride (98-107) mmol/L Carbon Dioxide (22-30) mmol/L Anion Gap (5-15) MEQ/L BUN (7-17) mg/dL Creatinine (0.52-1.04) mg/dL Estimated GFR ML/MIN Glucose (74-106) mg/dL POC Glucometer 81 (74 to 106) mg/dL Calcium (8.4-10.2) mg/dL Total Bilirubin (0.2-1.3) mg/dL AST (14-36) U/L ALT (0-35) U/L Alkaline Phosphatase (38-126) U/L Creatine Kinase (30-135) U/L Serum Total Protein (6.3-8.2) g/dL Albumin (3.5-5.0) g/dL Radiology Exams: Radiology Procedures Category Date Time Status LUMBAR SPINE W/O [CT] Urgent Exams 02/03/25 13:49 Completed Medications: Medications Generic Name Dose Route Start Last Admin Trade Name Freq PRN Reason Stop Dose Admin Aspirin 81 mg 02/02/25 10:00 02/04/25 09:06 Aspirin 81 Mg Tablet.Ec PO 03/04/25 09:59 81 mg DAILY OSITO Administration Clonazepam 1 mg 02/02/25 10:00 02/04/25 09:06 Clonazepam 0.5 Mg Tablet PO 03/04/25 09:59 1 mg BID OSITO Administration Enoxaparin Sodium 40 mg 02/02/25 12:00 02/04/25 09:06 Enoxaparin Sodium 40 Mg/0.4 Ml Syringe SQ 03/04/25 11:59 40 mg DAILY OSITO Administration Heparin Sodium (Beef Lung) 500 units 02/02/25 05:53 02/04/25 05:46 Heparin Lock Flush Pf 500 Units/5 Ml Syringe PORT FLUSH 03/04/25 05:52 500 units PRN PRN Administration IV PORT FLUSH Metoprolol Tartrate 25 mg 02/01/25 22:00 02/04/25 09:06 Metoprolol Tartrate 25 Mg Tab PO 03/03/25 21:59 25 mg BID OSITO Administration Miscellaneous Information 1 each 02/02/25 07:45 Medication Intervention 1 Each Each 03/04/25 07:44 .RN TO CHECK OSITO Naproxen 250 mg 02/02/25 07:32 02/03/25 09:11 Naproxen 500 Mg Tablet PO 03/04/25 07:31 250 mg DAILY PRN PRN Administration PAIN Nitrofurantoin Macrocrystals 100 mg 02/02/25 08:00 02/04/25 09:05 Nitrofurantoin Macro 100 Mg Capsule PO 03/04/25 07:59 100 mg BIDWM OSITO Administration Simvastatin 10 mg 02/01/25 22:00 02/03/25 22:28 Simvastatin 10 Mg Tablet PO 03/03/25 21:59 10 mg HS OSITO Administration Discontinued Medications Generic Name Dose Route Start Last Admin Trade Name Freq PRN Reason Stop Dose Admin Acetaminophen 975 mg 02/01/25 13:22 02/01/25 13:58 Acetaminophen 325 Mg Tablet PO 02/01/25 13:23 975 mg STAT ONE Administration Acetaminophen Confirm 02/01/25 13:57 Acetaminophen 325 Mg Tablet Administered 02/01/25 13:58 Dose 975 mg .ROUTE .STK-MED ONE Acetaminophen 500 mg 02/01/25 18:17 02/01/25 18:29 Acetaminophen 500 Mg Tablet PO 02/01/25 18:18 500 mg STAT STA Administration Clonazepam 1 mg 02/01/25 22:00 02/01/25 22:47 Clonazepam 2 Mg Tablet PO 03/03/25 21:59 1 mg BID OSITO Administration Heparin Sodium (Beef Lung) Confirm 02/02/25 05:33 Heparin Lock Flush Pf 500 Units/5 Ml Syringe Administered 02/02/25 05:34 Dose 500 units .ROUTE .STK-MED ONE Sodium Chloride 1,000 mls @ 999 mls/hr 02/01/25 13:22 02/01/25 15:03 Sodium Chloride 0.9% 1000 Ml IV 02/01/25 14:22 Infused .Q1H1M STA Infusion Sodium Chloride Confirm 02/01/25 13:58 Sodium Chloride 0.9% 1000 Ml Administered 02/01/25 13:59 Dose 1,000 mls @ ud .ROUTE .STK-MED ONE Morphine Sulfate 1 mg 02/03/25 13:50 02/03/25 15:42 Morphine Sulfate 2 Mg/Ml Inj IV 02/03/25 13:51 1 mg 1XONLY ONE Administration Naproxen Confirm 02/02/25 04:32 Naproxen 500 Mg Tablet Administered 02/02/25 04:33 Dose 500 mg .ROUTE .STK-MED ONE Nitrofurantoin Macrocrystals 100 mg 02/01/25 15:04 02/01/25 15:08 Nitrofurantoin Macro 100 Mg Capsule PO 02/01/25 15:05 100 mg STAT ONE Administration Nitrofurantoin Macrocrystals Confirm 02/01/25 15:07 Nitrofurantoin Macro 100 Mg Capsule Administered 02/01/25 15:08 Dose 100 mg .ROUTE .STK-MED ONE Non-Formulary Medication 10 mg 02/01/25 22:00 02/01/25 22:45 Atorvastatin Calcium [Lipitor] PO 03/03/25 21:59 Not Given HS OSITO Simvastatin Confirm 02/01/25 22:41 Simvastatin 10 Mg Tablet Administered 02/01/25 22:42 Dose 10 mg .ROUTE .STK-MED ONE Multi-Disciplinary Progress Notes: Multi-Disciplinary Progress Notes 02/03/25 13:22 Case Management Note by Myriam Ocampo PATIENT DID NOT DO WELL WITH PHYSICAL THERAPY- WEAKNESS NOTED. PATIENT NEEDING ASSISTANCE WITH TRANSFERS. THIS HOME THEATER SPECIALIST AND PHYSICAL THERAPIST, RIMMA, HAD LONG CONVERSATION WITH PATIENT REGARDING DC PLANS. PATIENT REALLY NEEDS REHAB STAY HOWEVER, SHE DOES NOT MEET QUALIFICATIONS FOR MEDICARE TO COVER IT AND ONLY HAS [place] MEDICAID. SHE REPORTS SHE DOES NOT HAVE THE MONEY TO PRIVATE PAY AND IS NOT WILLING TO CONVERT OVER TO FULL MEDICAID BY GETTING SIGNING OVER HER INCOME. SHE REPORTS HER DAUGHTER RELIES ON HER INCOME FOR HER BILLS WELL. PATIENT NOTIFIED AND UNDERSTANDS SHE IS AT EXTREME RISK FOR FALLS AT HOME AND SHOULD NOT BE AMBULATING OR TRANSFERRING BY HERSELF AT HOME. PATIENT UNDERSTANDS THIS BUT AGAIN IS CHOOSING TO GO HOME AT THIS TIME. HHC AND HOSPICE WERE BOTH EXPLAINED IN DEPTH AND OFFERED TO PATIENT. SHE WOULD LIKE TO DC HOME WITH [facility] AT THIS TIME IN HOPES OF WORKING WITH PHYSICAL THERAPY AND GETTING STRONGER AT HOME. PATIENT REPORTS HER HOME IS ONE LEVEL AND THAT A WHEELCHAIR COULD GET AROUND IT. TRANSPORT CHAIR ORDERED THRU [facility] FOR DELIVERY TO [facility] PRIOR TO DC. C WAS SET UP WITH [facility]. CALLED AND S/W DAUGHTER JAZZ- SHE WAS EXPLAINED ALL THE ABOVE AND VERIFIED UNDERSTANDING. SHE PLANS TO BE WITH PATIENT THE WEEKEND AND MAKE FURTHER PLANS FOR PATIENT. SHE FEELS HOSPICE IS MOST APPROPRIATE FOR PATIENT. LIST OF PRIVATE SITTERS AND HHC/HOSPICE AGENCIES PLACED IN PATIENT'S DC FOLDER FOR DAUGHTER REFERENCE AND ASSISTANCE AT HOME. SHE WAS NOTIFIED THAT A BSC COULD BE BENEFICIAL FOR PATIENT AT HOME. SHE INQUIRED ABOUT A [facility]- SHE WAS NOTIFIED THESE ARE NOT COVERED BY MEDICARE BUT COULD MAYBE BE CONSIDERED BY HOSPICE. DAUGHTER PLANS TO PROVIDE CARE FOR PATIENT AT TIME OF DC WITH ASSISTANCE OF HHC. REFERRAL ALSO MADE TO [facility] FOR CONT'D SUPPORT. DAUGHTER WORRIED ABOUT GETTING PATIENT IN HER HOME- [facility] PHONE NUMBER PLACED IN DC INSTRUCTIONS AND DAUGHTER NOTIFIED TO CALL WHEN SHE GETS PATIENT HOME TO GET ASSISTANCE. SHE VERIFIED UNDERSTANDING. DAUGHTER WILL PICK PATIENT UP AT TIME OF DC. NURSING TO CALL HER ONCE SHE IS READY AND WHEELCHAIR HAS BEEN DELIVERED Initialized on 02/03/25 13:22 - END OF NOTE 02/03/25 12:46 Case Management Note by Myriam Ocampo REFERRAL EMAILED TO [facility]. THEY WERE NOTIFIED PATIENT IS DCING TODAY. THEY HAVE ACCEPTED. THEY WILL NEED FAXED THE DC INSTRUCTIONS, DC MED LIST AND DC SUMMARY TO [phone] Initialized on 02/03/25 12:46 - END OF NOTE
--- NOTE | 2025-02-05 05:34 | PCM.NOTE ---
Date and Time: 02/05/25 0533 Subjective Assessment: Ms. Gardner is an 80-year-old female with a past medical history significant for coronary artery disease status post stent placement, hypertension, hyperlipidemia, type 2 diabetes mellitus, and agoraphobia who presented to the emergency department after a fall with subsequent weakness and inability to ambulate. The patient reports that she was walking from the bathroom to her bedroom using her walker when she lost her balance and fell. She denies loss of consciousness, dizziness, or head strike. She was unable to get herself up off the floor and used her cell phone to call her daughter, who subsequently called EMS. On presentation, the patient endorsed bilateral knee pain, worse on the right, as well as right groin pain. She denied chest pain, shortness of breath, palpitations, or focal neurologic deficits at the time of the fall. In the emergency department, vital signs were largely within normal limits. Laboratory studies were overall stable compared to baseline. Urinalysis was suggestive of urinary tract infection; the patient reported some urinary hesitancy but denied dysuria, hematuria, or flank pain. Imaging included lumbar spine and right knee X-rays, which did not demonstrate any acute fractures. A hip X-ray was also negative for fracture. Despite negative imaging, the patient was unable to ambulate safely or care for herself due to significant lower extremity weakness and pain and was therefore admitted for further evaluation and management of fall with ambulatory dysfunction and UTI. On 02/02, the patient continued to report significant weakness in her legs along with persistent pain, and she remains unable to stand or ambulate independently. Given ongoing bilateral lower extremity weakness despite negative plain films, there is concern for an occult lumbar compression fracture or disc pathology. A lumbar CT scan was ordered for further evaluation; however, during transport the patient reported she was unable to lie flat and ultimately refused the scan. 02/04: Met with patient bedside. Back pain improved some, patient able to stand but states hard to move around in bed. CT L/S with no acute findings. CM to look into rehab vs [facility]. Patient states she lives at home and daughter lives with her, but works and will not be there all day to help care for her. Pending discharge plan. 02/05: Patient remains admitted for generalized weakness and inability to ambulate. She continues to be unable to safely ambulate or care for herself and requires assistance with transfers. CT lumbar spine without acute findings. Physical therapy reports poor tolerance with significant weakness noted and patient is not safe for independent mobility. She lives with her daughter who is unable to provide full-time care, and patient is not safe for discharge home due to high fall risk and inability to perform self-care.Rehab/SNF is medically indicated; barrier is payer/financial constraints. Disposition remains unresolved. - Review of Systems Constitutional: Weakness Eyes: No Symptoms Ears, Nose, & Throat: No Symptoms Respiratory: No Symptoms Cardiac: No Symptoms Abdominal/Gastrointestinal: No Symptoms Genitourinary Symptoms: No Symptoms Musculoskeletal: No Symptoms Skin: No Symptoms Neurological: No Symptoms Psychological: No Symptoms Endocrine: No Symptoms Hematologic/Lymphatic: No Symptoms Immunological/Allergic: No Symptoms Objective Exam General Appearance: no apparent distress Neurologic Exam: alert, oriented x 3, cooperative Skin Exam: normal color Eye Exam: PERRL Ears, Nose, Throat Exam: normal ENT inspection Neck Exam: normal inspection Respiratory Exam: normal breath sounds, lungs clear Cardiovascular Exam: regular rate/rhythm, normal heart sounds Gastrointestinal/Abdomen Exam: soft, normal bowel sounds Extremity Exam: normal inspection Back Exam: normal inspection Pelvic Exam: deferred Rectal Exam: deferred Objective Data Vital Signs: Vital Signs - 24 hr Temp Pulse Resp BP Pulse Ox 02/05/25 03:25 98.0 F 67 17 178/77 94 L 02/04/25 23:21 97.1 F 57 L 18 181/75 96 02/04/25 19:18 96.9 F 70 16 185/74 96 02/04/25 16:00 97.5 F 68 16 183/79 94 L 02/04/25 11:18 97.1 F 59 L 16 149/63 95 02/04/25 08:00 97.3 F 59 L 16 159/70 94 L Pain Assessment - Last Documented Pain Intensity 3 Pain Scale Used 0-10 Pain Scale Intake and Output: Intake & Output 02/02/25 02/03/25 02/04/25 02/05/25 11:59 11:59 11:59 11:59 Intake Total 944 244 7837 920 Output Total 0 250 150 700 Balance 063 453 7909 220 Weight 84.3 kg Lab Results: Lab Results-Last 24 Hours 02/04/25 02/04/25 02/04/25 Range/Units 05:43 05:43 07:28 WBC 4.8 (3.98-10.04) x10^3/uL RBC 2.83 L (3.93-5.22) x10^6/uL Hgb 9.4 L (11.2-15.7) g/dL Hct 31.4 L (34.1-44.9) % MCV 111.0 H (79.4-94.8) fL MCH 33.2 H (25.6-32.2) pg MCHC 29.9 L (32.2-35.5) g/dL RDW 15.3 H (11.7-14.4) % Plt Count 324 (182-369) x10^3/uL MPV 10.1 (9.4-12.3) fL Gran % 68.7 (34.0-71.1) % Immature Gran % (Auto) 0.2 (0.001-0.429) % Nucleat RBC Rel Count 0.0 (0.00-0.2) % Eos # (Auto) 0.11 (0.04-0.36) x10^3/uL Immature Gran # (Auto) 0.01 (0.001-0.031) x10^3u/L Absolute Lymphs (auto) 0.82 L (1.18-3.74) x10^3/uL Absolute Monos (auto) 0.48 (0.24-0.86) x10^3/uL Absolute Nucleated RBC 0.00 (0.00-0.012) x10^3u/L Lymphocytes % 17.2 L (19.3-51.7) % Monocytes % 10.1 (4.7-12.5) % Eosinophils % 2.3 (0.7-5.8) % Basophils % 1.5 H (0.1-1.2) % Absolute Granulocytes 3.27 (1.56-6.13) x10^3/uL Basophils # 0.07 (0.01-0.08) x10^3/uL Sodium 140 (135-145) mmol/L Potassium 3.6 (3.5-5.1) mmol/L Chloride 108 H (98-107) mmol/L Carbon Dioxide 26 (22-30) mmol/L Anion Gap 9.0 (5-15) MEQ/L BUN 21 H (7-17) mg/dL Creatinine 0.87 (0.52-1.04) mg/dL Estimated GFR 67.3 ML/MIN Glucose 84 (74-106) mg/dL POC Glucometer 81 (74 to 106) mg/dL Calcium 9.1 (8.4-10.2) mg/dL Total Bilirubin 0.40 (0.2-1.3) mg/dL AST 23 (14-36) U/L ALT 9 (0-35) U/L Alkaline Phosphatase 75 (38-126) U/L Serum Total Protein 6.2 L (6.3-8.2) g/dL Albumin 3.2 L (3.5-5.0) g/dL 02/04/25 02/04/25 02/04/25 Range/Units 11:04 16:08 21:17 WBC (3.98-10.04) x10^3/uL RBC (3.93-5.22) x10^6/uL Hgb (11.2-15.7) g/dL Hct (34.1-44.9) % MCV (79.4-94.8) fL MCH (25.6-32.2) pg MCHC (32.2-35.5) g/dL RDW (11.7-14.4) % Plt Count (182-369) x10^3/uL MPV (9.4-12.3) fL Gran % (34.0-71.1) % Immature Gran % (Auto) (0.001-0.429) % Nucleat RBC Rel Count (0.00-0.2) % Eos # (Auto) (0.04-0.36) x10^3/uL Immature Gran # (Auto) (0.001-0.031) x10^3u/L Absolute Lymphs (auto) (1.18-3.74) x10^3/uL Absolute Monos (auto) (0.24-0.86) x10^3/uL Absolute Nucleated RBC (0.00-0.012) x10^3u/L Lymphocytes % (19.3-51.7) % Monocytes % (4.7-12.5) % Eosinophils % (0.7-5.8) % Basophils % (0.1-1.2) % Absolute Granulocytes (1.56-6.13) x10^3/uL Basophils # (0.01-0.08) x10^3/uL Sodium (135-145) mmol/L Potassium (3.5-5.1) mmol/L Chloride (98-107) mmol/L Carbon Dioxide (22-30) mmol/L Anion Gap (5-15) MEQ/L BUN (7-17) mg/dL Creatinine (0.52-1.04) mg/dL Estimated GFR ML/MIN Glucose (74-106) mg/dL POC Glucometer 128 H 105 110 H (74 to 106) mg/dL Calcium (8.4-10.2) mg/dL Total Bilirubin (0.2-1.3) mg/dL AST (14-36) U/L ALT (0-35) U/L Alkaline Phosphatase (38-126) U/L Serum Total Protein (6.3-8.2) g/dL Albumin (3.5-5.0) g/dL Radiology Exams: Radiology Procedures Category Date Time Status LUMBAR SPINE W/O [CT] Urgent Exams 02/03/25 13:49 Completed Medications: Medications Generic Name Dose Route Start Last Admin Trade Name Freq PRN Reason Stop Dose Admin Aspirin 81 mg 02/02/25 10:00 02/04/25 09:06 Aspirin 81 Mg Tablet.Ec PO 03/04/25 09:59 81 mg DAILY OSITO Administration Clonazepam 1 mg 02/02/25 10:00 02/04/25 21:19 Clonazepam 0.5 Mg Tablet PO 03/04/25 09:59 1 mg BID OSITO Administration Enoxaparin Sodium 40 mg 02/02/25 12:00 02/04/25 09:06 Enoxaparin Sodium 40 Mg/0.4 Ml Syringe SQ 03/04/25 11:59 40 mg DAILY OSITO Administration Heparin Sodium (Beef Lung) 500 units 02/02/25 05:53 02/04/25 05:46 Heparin Lock Flush Pf 500 Units/5 Ml Syringe PORT FLUSH 03/04/25 05:52 500 units PRN PRN Administration IV PORT FLUSH Metoprolol Tartrate 25 mg 02/01/25 22:00 02/04/25 21:19 Metoprolol Tartrate 25 Mg Tab PO 03/03/25 21:59 25 mg BID OSITO Administration Miscellaneous Information 1 each 02/02/25 07:45 Medication Intervention 1 Each Each 03/04/25 07:44 .RN TO CHECK OSITO Naproxen 250 mg 02/02/25 07:32 02/03/25 09:11 Naproxen 500 Mg Tablet PO 03/04/25 07:31 250 mg DAILY PRN PRN Administration PAIN Nitrofurantoin Macrocrystals 100 mg 02/02/25 08:00 02/04/25 17:19 Nitrofurantoin Macro 100 Mg Capsule PO 03/04/25 07:59 100 mg BIDWM OSITO Administration Simvastatin 10 mg 02/01/25 22:00 02/04/25 21:19 Simvastatin 10 Mg Tablet PO 03/03/25 21:59 10 mg HS OSITO Administration Discontinued Medications Generic Name Dose Route Start Last Admin Trade Name Freq PRN Reason Stop Dose Admin Acetaminophen 975 mg 02/01/25 13:22 02/01/25 13:58 Acetaminophen 325 Mg Tablet PO 02/01/25 13:23 975 mg STAT ONE Administration Acetaminophen Confirm 02/01/25 13:57 Acetaminophen 325 Mg Tablet Administered 02/01/25 13:58 Dose 975 mg .ROUTE .STK-MED ONE Acetaminophen 500 mg 02/01/25 18:17 02/01/25 18:29 Acetaminophen 500 Mg Tablet PO 02/01/25 18:18 500 mg STAT STA Administration Clonazepam 1 mg 02/01/25 22:00 02/01/25 22:47 Clonazepam 2 Mg Tablet PO 03/03/25 21:59 1 mg BID OSITO Administration Heparin Sodium (Beef Lung) Confirm 02/02/25 05:33 Heparin Lock Flush Pf 500 Units/5 Ml Syringe Administered 02/02/25 05:34 Dose 500 units .ROUTE .STK-MED ONE Sodium Chloride 1,000 mls @ 999 mls/hr 02/01/25 13:22 02/01/25 15:03 Sodium Chloride 0.9% 1000 Ml IV 02/01/25 14:22 Infused .Q1H1M STA Infusion Sodium Chloride Confirm 02/01/25 13:58 Sodium Chloride 0.9% 1000 Ml Administered 02/01/25 13:59 Dose 1,000 mls @ ud .ROUTE .STK-MED ONE Morphine Sulfate 1 mg 02/03/25 13:50 02/03/25 15:42 Morphine Sulfate 2 Mg/Ml Inj IV 02/03/25 13:51 1 mg 1XONLY ONE Administration Naproxen Confirm 02/02/25 04:32 Naproxen 500 Mg Tablet Administered 02/02/25 04:33 Dose 500 mg .ROUTE .STK-MED ONE Nitrofurantoin Macrocrystals 100 mg 02/01/25 15:04 02/01/25 15:08 Nitrofurantoin Macro 100 Mg Capsule PO 02/01/25 15:05 100 mg STAT ONE Administration Nitrofurantoin Macrocrystals Confirm 02/01/25 15:07 Nitrofurantoin Macro 100 Mg Capsule Administered 02/01/25 15:08 Dose 100 mg .ROUTE .STK-MED ONE Non-Formulary Medication 10 mg 02/01/25 22:00 02/01/25 22:45 Atorvastatin Calcium [Lipitor] PO 03/03/25 21:59 Not Given HS OSITO Simvastatin Confirm 02/01/25 22:41 Simvastatin 10 Mg Tablet Administered 02/01/25 22:42 Dose 10 mg .ROUTE .STK-MED ONE Assessment/Plan (1) UTI (urinary tract infection) Current Visit: Yes Status: Acute Assessment & Plan: -UA suggestive of infection with reported urinary hesitancy. -No systemic signs of sepsis. -Started on Macrobid 100 mg BID -Monitor clinical response and culture data. -culture with probable skin contaminant on pre-owen, continue abx until final 02/05: -Bacterial ID and susceptibility pending for urine culture -continue macrobid Code(s): N39.0 - URINARY TRACT INFECTION, SITE NOT SPECIFIED (2) Fall Current Visit: Yes Status: Acute Assessment & Plan: -Mechanical fall at home with subsequent inability to ambulate. -History of multiple recent falls over the past several weeks. -X-rays of lumbar spine, right knee, and hip without acute fracture. -Persistent bilateral lower extremity weakness and pain. -Lumbar CT ordered to evaluate for occult compression fracture or disc herniation; no acute findings -Will reassess willingness for imaging; consider alternative positioning or MRI if feasible. -PT/OT consult for functional assessment -Anticipate need for short-term rehab placement given inability to ambulate safely. 02/05: -Continue PT/OT daily while inpatient; document objective function (assist level, distance, transfer ability). -Maintain fall precautions: bed/chair alarm, assist x12 with transfers, non- skid socks, call light within reach. -Encourage out of bed to chair with staff assist; turn/reposition as needed to prevent deconditioning/skin breakdown. -Rehab/SNF medically indicated but not covered; patient declines private pay/f ull Medicaid conversion. -Continue daily CM/SW involvement; reassess placement options and caregiver availability. -Consider Hospice Code(s): W19.XXXA - UNSPECIFIED FALL, INITIAL ENCOUNTER (3) Agoraphobia Current Visit: Yes Status: Acute Assessment & Plan: -Chronic. -Continue home clonazepam. -Likely contributing to difficulty tolerating imaging and hospital environment. -Provide reassurance and clear explanations before procedures. Code(s): F40.00 - AGORAPHOBIA, UNSPECIFIED (4) CAD (coronary artery disease) Current Visit: Yes Status: Acute Assessment & Plan: -Chronic, stable. -Continue aspirin, statin, and metoprolol. -No active ischemic symptoms. Code(s): I25.10 - ATHSCL HEART DISEASE OF [place] CORONARY ARTERY W/O ANG PCTRS (5) DM2 (diabetes mellitus, type 2) Current Visit: Yes Status: Acute Assessment & Plan: -Chronic. -Continue pioglitazone. -A1c -ADA diet (6) Hyperlipidemia Current Visit: Yes Status: Chronic Assessment & Plan: -Chronic. -Continue statin therapy. Code(s): E78.5 - HYPERLIPIDEMIA, UNSPECIFIED (7) Difficulty in walking Current Visit: Yes Status: Acute Assessment & Plan: -CT lumbar/Spine ordered Code(s): R26.2 - DIFFICULTY IN WALKING, NOT ELSEWHERE CLASSIFIED (8) Hypertension Current Visit: Yes Status: Chronic Assessment & Plan: -Chronic. -Continue home metoprolol. -Monitor blood pressures. VTE:Heparin Dispo:1-3 days Full Code Plan of care time spent greater than 35 mins Code(s): I10 - ESSENTIAL (PRIMARY) HYPERTENSION Code(s): N39.0 - URINARY TRACT INFECTION, SITE NOT SPECIFIED (2) Fall Current Visit: Yes Status: Acute Code(s): W19.XXXA - UNSPECIFIED FALL, INITIAL ENCOUNTER (3) Agoraphobia Current Visit: Yes Status: Acute Code(s): F40.00 - AGORAPHOBIA, UNSPECIFIED (4) CAD (coronary artery disease) Current Visit: Yes Status: Acute Code(s): I25.10 - ATHSCL HEART DISEASE OF [place] CORONARY ARTERY W/O ANG PCTRS (5) DM2 (diabetes mellitus, type 2) Current Visit: Yes Status: Acute (6) Hyperlipidemia Current Visit: Yes Status: Chronic Code(s): E78.5 - HYPERLIPIDEMIA, UNSPECIFIED (7) Difficulty in walking Current Visit: Yes Status: Acute Code(s): R26.2 - DIFFICULTY IN WALKING, NOT ELSEWHERE CLASSIFIED (8) Hypertension Current Visit: Yes Status: Chronic Code(s): I10 - ESSENTIAL (PRIMARY) HYPERTENSION
[2025-02-05 06:16] LABS: BASOPHIL % 1.1 % (0.1-1.2); Basophil (Absolute #) 0.09 x10^3/uL (0.01-0.08); Eosinophil (Absolute #) 0.07 x10^3/uL (0.04-0.36); Hematocrit 33.6 % (34.1-44.9); Hemoglobin 9.5 g/dL (11.2-15.7); IMMATURE GRAN # 0.02 x10^3u/L (0.001-0.031); IMMATURE GRAN % 0.2 % (0.001-0.429); Lymphocyte (Absolute #) 0.77 x10^3/uL (1.18-3.74); Mean Corpuscular Hemoglobin 33.2 pg (25.6-32.2); Mean Corpuscular Hgb Concent. 28.3 g/dL (32.2-35.5); Monocyte (Absolute #) 0.50 x10^3/uL (0.24-0.86); NUCLEATED RBC # 0.00 x10^3u/L (0.00-0.012); NUCLEATED RBC % 0.0 % (0.00-0.2); Platelet Count 324 x10^3/uL (182-369); Red Blood Count 2.86 x10^6/uL (3.93-5.22); White Blood Count 8.2 x10^3/uL (3.98-10.04)
[2025-02-05 06:26] LABS: Calcium 9.2 mg/dL (8.4-10.2); Carbon Dioxide 24.0 mmol/L (22-30); Creatinine 1 0.78 mg/dL (0.52-1.04); EST GLOMERULAR FILTRATION RATE 76.7 ML/MIN; Glucose 80.0 mg/dL (74-106); Potassium 3.7 mmol/L (3.5-5.1); SGOT/AST 23.0 U/L (14-36); SGPT/ALT 8.0 U/L (0-35); Total Protein 6.2 g/dL (6.3-8.2)
[2025-02-05 06:57] LABS: Slide Review 1 YES
[2025-02-05 08:09] VITALS: RESP 16
[2025-02-05 12:03] VITALS: BP 183/74; PULSE 73; TEMP 97.3; O2SAT 94
--- NOTE | 2025-02-05 14:09 | PCM.DS ---
Discharge Summary Date of Admission: 02/01/25 15:58 Date of Discharge: 02/05/25 Admitting Physician: ENE COURTNEY MD Primary Care Provider: RAFAELA ALBERTO Allergies Allergies adhesive Allergy (Verified 02/01/25 12:49) Hospital Summary - Hospital Course Hospital Course: Ms. Gardner is an 80-year-old female with a past medical history significant for coronary artery disease status post stent placement, hypertension, hyperlipidemia, type 2 diabetes mellitus, and agoraphobia who presented to the emergency department after a mechanical fall at home with subsequent weakness and inability to ambulate. The patient reported that she was walking from the bathroom to her bedroom using her walker when she lost her balance and fell. She denied loss of consciousness, dizziness, head strike, chest pain, shortness of breath, palpitations, or focal neurologic symptoms. She was unable to get herself up from the floor and contacted her daughter, who called EMS. On presentation, the patient endorsed bilateral knee pain, worse on the right, as well as right groin pain. Vital signs in the emergency department were stable. Laboratory studies were overall unremarkable and consistent with baseline. Urinalysis was suggestive of urinary tract infection; the patient reported urinary hesitancy but denied dysuria, hematuria, flank pain, fever, or systemic symptoms. Initial imaging included X-rays of the lumbar spine, right knee, and hip, all of which were negative for acute fracture. Despite negative imaging, the patient was unable to ambulate safely due to significant bilateral lower extremity weakness and pain and was admitted for further evaluation and management of fall with ambulatory dysfunction and UTI. During hospitalization, the patient continued to report weakness and difficulty with mobility. Given persistent bilateral lower extremity weakness despite negative plain films, concern remained for occult lumbar pathology. A CT scan of the lumbar spine was ordered for further evaluation. Initially, the patient was unable to tolerate lying flat due to anxiety and discomfort and refused imaging. On 02/04, her back pain had somewhat improved, and she was able to stand with assistance but continued to have difficulty moving in bed and ambulating safely. CT lumbar spine was ultimately completed and showed no acute findings. Physical therapy evaluated the patient and noted poor tolerance to therapy with significant weakness and inability to ambulate independently. She required assistance with transfers and was deemed unsafe for independent mobility. Given her functional status, short-term rehab or alf placement was medically indicated; however, placement was limited by payer and financial constraints. Case management and social work were closely involved throughout the hospitalization. By 02/05, after further discussion with the patient and her daughter, the daughter confirmed she would be able to provide care at home. Home health services, including physical therapy, were arranged. With a safe discharge plan in place, the patient was deemed appropriate for discharge home. Urine culture showed probable skin contaminant on preliminary results, with final bacterial identification and susceptibilities pending at time of discharge. Given symptomatic UTI and urinalysis findings, the patient was continued on Macrobid to complete a short course. Overall, this hospitalization addressed a mechanical fall complicated by acute functional decline and urinary tract infection, without evidence of acute fracture or spinal injury. The patient is discharged home with caregiver support and home health services. I spent 35 minutes [id number] with the patient on the day of discharge performing discharge exam, discussing hospital stay and discharge instructions with patient and caregivers, preparation of discharge records, prescriptions & referral forms and addressing any questions/concerns the patient had as documented above. - Vitals & Intake/Output Vital Signs: Vital Signs Temperature 97.3 F 02/05/25 12:00 Pulse Rate 73 02/05/25 12:00 Respiratory Rate 16 02/05/25 12:00 Blood Pressure 183/74 02/05/25 12:00 O2 Sat by Pulse Oximetry 94 L 02/05/25 12:00 Intake & Output: Intake & Output 02/03/25 02/04/25 02/05/25 02/06/25 11:59 11:59 11:59 11:59 Intake Total 600 1300 1040 120 Output Total 250 150 700 Balance 350 1150 340 120 - Lab Result Diagrams: 02/05/25 05:17 02/05/25 05:17 Lab Results-Last 24 Hrs: Lab Results-Last 24 Hours 02/04/25 02/04/25 02/05/25 Range/Units 16:08 21:17 05:17 WBC 8.2 (3.98-10.04) x10^3/uL RBC 2.86 L (3.93-5.22) x10^6/uL Hgb 9.5 L (11.2-15.7) g/dL Hct 33.6 L (34.1-44.9) % MCV 117.5 H (79.4-94.8) fL MCH 33.2 H (25.6-32.2) pg MCHC 28.3 L (32.2-35.5) g/dL RDW 15.1 H (11.7-14.4) % Plt Count 324 (182-369) x10^3/uL MPV 10.5 (9.4-12.3) fL Gran % 82.3 H (34.0-71.1) % Immature Gran % (Auto) 0.2 (0.001-0.429) % Nucleat RBC Rel Count 0.0 (0.00-0.2) % Eos # (Auto) 0.07 (0.04-0.36) x10^3/uL Immature Gran # (Auto) 0.02 (0.001-0.031) x10^3u/L Absolute Lymphs (auto) 0.77 L (1.18-3.74) x10^3/uL Absolute Monos (auto) 0.50 (0.24-0.86) x10^3/uL Absolute Nucleated RBC 0.00 (0.00-0.012) x10^3u/L Lymphocytes % 9.4 L (19.3-51.7) % Monocytes % 6.1 (4.7-12.5) % Eosinophils % 0.9 (0.7-5.8) % Basophils % 1.1 (0.1-1.2) % Absolute Granulocytes 6.70 H (1.56-6.13) x10^3/uL Basophils # 0.09 H (0.01-0.08) x10^3/uL Sodium (135-145) mmol/L Potassium (3.5-5.1) mmol/L Chloride (98-107) mmol/L Carbon Dioxide (22-30) mmol/L Anion Gap (5-15) MEQ/L BUN (7-17) mg/dL Creatinine (0.52-1.04) mg/dL Estimated GFR ML/MIN Glucose (74-106) mg/dL POC Glucometer 105 110 H (74 to 106) mg/dL Calcium (8.4-10.2) mg/dL Total Bilirubin (0.2-1.3) mg/dL AST (14-36) U/L ALT (0-35) U/L Alkaline Phosphatase (38-126) U/L Serum Total Protein (6.3-8.2) g/dL Albumin (3.5-5.0) g/dL Slides for Path Review YES 02/05/25 02/05/25 02/05/25 Range/Units 05:17 07:11 10:59 WBC (3.98-10.04) x10^3/uL RBC (3.93-5.22) x10^6/uL Hgb (11.2-15.7) g/dL Hct (34.1-44.9) % MCV (79.4-94.8) fL MCH (25.6-32.2) pg MCHC (32.2-35.5) g/dL RDW (11.7-14.4) % Plt Count (182-369) x10^3/uL MPV (9.4-12.3) fL Gran % (34.0-71.1) % Immature Gran % (Auto) (0.001-0.429) % Nucleat RBC Rel Count (0.00-0.2) % Eos # (Auto) (0.04-0.36) x10^3/uL Immature Gran # (Auto) (0.001-0.031) x10^3u/L Absolute Lymphs (auto) (1.18-3.74) x10^3/uL Absolute Monos (auto) (0.24-0.86) x10^3/uL Absolute Nucleated RBC (0.00-0.012) x10^3u/L Lymphocytes % (19.3-51.7) % Monocytes % (4.7-12.5) % Eosinophils % (0.7-5.8) % Basophils % (0.1-1.2) % Absolute Granulocytes (1.56-6.13) x10^3/uL Basophils # (0.01-0.08) x10^3/uL Sodium 136 (135-145) mmol/L Potassium 3.7 (3.5-5.1) mmol/L Chloride 106 (98-107) mmol/L Carbon Dioxide 24 (22-30) mmol/L Anion Gap 10.0 (5-15) MEQ/L BUN 21 H (7-17) mg/dL Creatinine 0.78 (0.52-1.04) mg/dL Estimated GFR 76.7 ML/MIN Glucose 80 (74-106) mg/dL POC Glucometer 83 101 (74 to 106) mg/dL Calcium 9.2 (8.4-10.2) mg/dL Total Bilirubin 0.50 (0.2-1.3) mg/dL AST 23 (14-36) U/L ALT 8 (0-35) U/L Alkaline Phosphatase 75 (38-126) U/L Serum Total Protein 6.2 L (6.3-8.2) g/dL Albumin 3.2 L (3.5-5.0) g/dL Slides for Path Review Micro Results-Entire Visit: Microbiology 02/01/25 13:53 Urine Culture - Preliminary Catherized ADDITIONAL TESTING IS REQUIRED TO OBTAIN ID AND SENSITIVITY. SPECIMEN HAS BEEN SENT TO REFERENCE LAB, WITH FINAL RESULT EXPECTED WITHIN 96 HOURS. 02/01/25 13:53 Organism Identification - Final Urine, Catheterized Not Reportable Accuchecks Date 02/05/25 Date 02/05/25 Date 02/04/25 Date 02/04/25 Time 21:26 - Radiology Exams Ordered Rad Exams-Entire Visit: Radiology Procedures Category Date Time Status LUMBAR SPINE W/O [CT] Urgent Exams 02/03/25 13:49 Completed - Procedures and Test Procedures and Tests throughout Hospitalization: Therapy Orders & Screens 02/03/25 10:20 PT Eval & Treat (MD Order) ONCE Reason for Eval:: WEAKNESS, INABILITY TO STAND Diagnosis: UTI Discharge Exam General Appearance: no apparent distress Neurologic Exam: alert, oriented x 3, cooperative Eye Exam: PERRL Ears, Nose, Throat Exam: normal ENT inspection Neck Exam: normal inspection Respiratory Exam: normal breath sounds, lungs clear Cardiovascular Exam: regular rate/rhythm, normal heart sounds Gastrointestinal/Abdomen Exam: soft, normal bowel sounds Pelvic Exam: deferred Rectal Exam: deferred Back Exam: normal inspection Extremity Exam: normal inspection Skin Exam: normal color Lymphatic Exam: adenopathy Final Diagnosis/Problem List - Final Discharge Diagnosis/Problem (1) UTI (urinary tract infection) Current Visit: Yes Status: Acute Assessment & Plan: Urinalysis suggestive of infection with urinary hesitancy No systemic signs of sepsis Urine culture preliminarily suggests probable skin contaminant; final results pending Continue Macrobid 100 mg BID for 3 additional days Follow up urine culture results as outpatient Encourage oral hydration Monitor for fever, worsening urinary symptoms, or flank pain Code(s): N39.0 - URINARY TRACT INFECTION, SITE NOT SPECIFIED (2) Fall Current Visit: Yes Status: Acute Assessment & Plan: Mechanical fall at home using walker History of multiple recent falls Persistent bilateral lower extremity weakness and pain X-rays of lumbar spine, right knee, and hip negative CT lumbar spine without acute findings PT evaluation: not safe for independent ambulation Discharge home with daughter providing assistance Home health care with physical therapy Continue walker for mobility Strict fall precautions at home Encourage gradual activity as tolerated Follow up with PCP for reassessment of mobility and fall risk Code(s): W19.XXXA - UNSPECIFIED FALL, INITIAL ENCOUNTER (3) Agoraphobia Current Visit: Yes Status: Acute Assessment & Plan: Chronic condition Contributed to difficulty tolerating imaging and hospital environment Code(s): F40.00 - AGORAPHOBIA, UNSPECIFIED (4) CAD (coronary artery disease) Current Visit: Yes Status: Acute Assessment & Plan: Chronic, stable No chest pain or ischemic symptoms during admission Code(s): I25.10 - ATHSCL HEART DISEASE OF [place] CORONARY ARTERY W/O ANG PCTRS (5) DM2 (diabetes mellitus, type 2) Current Visit: Yes Status: Acute Assessment & Plan: No acute glycemic issues during admission Continue pioglitazone (6) Hyperlipidemia Current Visit: Yes Status: Chronic Assessment & Plan: Continue statin therapy Code(s): E78.5 - HYPERLIPIDEMIA, UNSPECIFIED (7) Difficulty in walking Current Visit: Yes Status: Acute Assessment & Plan: see above Functional decline following fall Requires assistance with transfers and ambulation High fall risk Home PT to address strength, balance, and safe mobility Assist with transfers as needed Reinforce safety strategies and energy conservation Code(s): R26.2 - DIFFICULTY IN WALKING, NOT ELSEWHERE CLASSIFIED (8) Hypertension Current Visit: Yes Status: Chronic Assessment & Plan: stable resume home regimen Code(s): I10 - ESSENTIAL (PRIMARY) HYPERTENSION - Discharge Discharge Date: 02/05/25 ([facility]) Disposition: HOME HEALTH SERVICE Condition: Stable Prescriptions: New Nitrofurantoin Macro 100 mg [Macrobid 100MG Capsule] 100 mg PO BIDWM 3 Days #6 cap Continue Metoprolol Tartrate 25 mg PO BID Aspirin 81 mg PO DAILY clonazePAM [Klonopin] 1 mg PO BID Pioglitazone 30 mg [Actos 30 MG] 30 mg PO DAILY Naproxen Sodium 220 mg [Aleve 220 MG] 220 mg PO DAILY PRN PRN PRN Reason: Pain Atorvastatin Calcium [Lipitor] 10 mg PO HS Additional Instructions: CALL [facility] AT [phone] WHEN YOU GET HOME AND REQUEST LIFT SUPPORT TO GET PATIENT INTO HER HOME. HOME HEALTHCARE HAS BEEN SETUP WITH [facility]. THEY WILL CALL YOU TO ARRANGE A TIME TO COME SEE YOU TO START SERVICES. THEIR PHONE NUMBER IS [phone] IF YOU NEED ANYTHING PRIOR TO THEM CONTACTING YOU. Follow up with: RAFAELA ALBERTO [Primary Care Provider, [facility]ILY [facility]]
== END 2025-02-05 15:19 | disposition home health service (06) ==
LOC: ED 12:48 → MED SURG 15:58
PROVIDERS: ADMIT Internal Medicine; ATTEND Internal Medicine
DX: N39.0 Urinary tract infection, site not specified (principal); W19.XXXA Unspecified fall, initial encounter; I25.10 Atherosclerotic heart disease of native coronary artery without angina pectoris; E11.9 Type 2 diabetes mellitus without complications; E78.5 Hyperlipidemia, unspecified; R26.2 Difficulty in walking, not elsewhere classified; I10 Essential (primary) hypertension; F17.200 Nicotine dependence, unspecified, uncomplicated; Z79.899 Other long term (current) drug therapy
CPT/HCPCS: 36415; 72100; 72131; 73502; 73562; 80048; 80053; 81001; 82550; 82947; 83036; 85025; 85027; 87086; 97161; 99285; G0378; Q3014